=== PATIENT | male | born 1935 | race Caucasian/White ===

== ENCOUNTER 2017-05-30 19:54 | Inpatient (IN) | payer MEDICARE ==
[~2017-05-30 19:54] MED LIST: ISOVUE-370 76%-LOCM 1 ML ONE
[2017-05-30] MEDS ORDERED: Propofol 1,000 MG/100 ML VIAL IV ONE (20:08)
[2017-05-30 20:16] LABS: #Basophils 0.1 thou/uL (0.0-0.2); #Eosinphils 0.4 thou/uL (0.0-0.7); #Lymphocytes 5.4 thou/uL (1.20-3.40); #Monocytes 1.4 thou/uL (0.11-0.59); #Neutrophils 8.5 thou/uL (1.40-6.50); %Basophils 0.4 % (0.0-1.0); %Eosinophils 2.3 % (0.0-10.0); %Lymphocytes 34.2 % (21.0-51.0); %Neutrophils 54.1 % (42.0-75.0); Hemoglobin 15.9 g/dL (14.0-18.0); Mean Corpuscular HGB CONC 32.1 g/dL (32.0-36.0); Mean Corpuscular Hemoglobin 30.3 pg (27.0-31.0); Mean Corpuscular Volume 94.2 fl (80.0-94.0); Mean Platelet Volume 8.5 fL (7.4-10.4); Platelet Count 252 thou/uL (130-400); RBC Distribution Width 12.9 % (11.5-14.5); Red Blood Cell (RBC) Count 5.26 mill/uL (4.70-6.10); White Blood Cell (WBC) Count 15.6 thou/uL (4.8-10.8)
[2017-05-30 20:22] LABS: INR-International Normal Ratio 1.1; PTT 26.4 SEC (22.9-36.1); Prothrombin Time 14.4 SEC (12.0-14.7)
[2017-05-30 20:26] LABS: ALT (SGPT) 54 U/L (8-55); AST (SGOT) 66 U/L (5-34); Albumin 4.5 g/dL (3.4-4.8); Alkaline Phosphatase 414 U/L (40-150); Anion Gap 27 mmol/L (10-20); BUN (Urea Nitrogen) 13 mg/dL (8.4-25.7); Bilirubin, Total 0.6 mg/dL (0.2-1.2); CRP (Inflammatory) 0.92 mg/dL (= or < 0.5); Calc. Creatinine Clearance 0 mL/min (70-130); Calcium 9.9 mg/dL (7.8-10.44); Carbon Dioxide 14 mmol/L (23-31); Chloride 103 mmol/L (98-107); Estimated GFR-MDRD 51; Globulin 3.6 g/dL (2.4-3.5); Glucose 145 mg/dL (83-110); Potassium 4.8 mmol/L (3.5-5.1); Protein, Total 8.1 g/dL (5.8-8.1); Sodium 139 mmol/L (136-145)
[2017-05-30 20:30] LABS: pH, Arterial 7.31 (7.35-7.45)
[2017-05-30 20:31] LABS: CKMB 0.6 ng/mL (0-6.6); Troponin I Less than 0.010 ng/mL (< 0.028)
[2017-05-30 20:31] LABS: Actual Bicarbonate (HCO3a) 17.8 mEq/L (22-26); Base Excess (BEa) -7.6 mEq/L (0 (+/-) 2.5); CO2 Tension 36.4 mmHg (35.0-45.0); Hematocrit-ABG 47.9 % (42.0-52.0); Hemoglobin (Hb) 14.7 g/dL (14.0-18.0); O2 Tension (PaO2) 311.8 mmHg (80.0-100.0)
[2017-05-30 20:32] LABS: Analyzer IN Cardio ER; Calcium, Ionized 1.2 mmol/L (1.12-1.30); Puncture Site RRA
[2017-05-30] MEDS ORDERED: Fentanyl 100 MCG/2 ML VIAL ONE (20:35)
--- NOTE | 2017-05-30 20:50 | RAD ---
ONE VIEW CHEST 05/30/17 HISTORY: Fall. COMPARISON: 03/07/13. FINDINGS: Endotracheal tube at the level of the clavicle. Nasogastric tube extends beyond the diaphragm. The he art size is within normal limits. Pulmonary vessels are within normal limits. Reticulonodular opaciti es are present. No consolidation or mass. No pneumothorax or osseous abnormality. IMPRESSION: Nonspecific reticulonodular opacities which may be due to edema or infiltrate. POS: [facility]
--- NOTE | 2017-05-30 21:17 | CT ---
EXAM: NONCONTRAST HEAD CT 05/30/17 HISTORY: Ground level fall. Level I trauma. Slurred speech. COMPARISON: 08/03/10. TECHNIQUE: Noncontrast head CT is performed from skull base to skull vertex. FINDINGS: There is a left frontal scalp hematoma as well as left periorbital posttraumatic swelling. Left ocula r and right ocular lenses were appropriately located. Both globes are intact. Retrobulbar fat is pres erved. Symmetric attenuation of the optic nerves and ocular rectus muscles. Bilateral nasal bone frac tures are suspected. There is adequate aeration of the majority of the paranasal sinuses with the exc eption of the posterior left ethmoid air cells which are partially obscured. Calvarium is intact. There is a fracture involving the roof of the left orbit. There is hyperdensity in the left anterior cranial fossa likely representing predominantly subarachnoid blood. Small areas of cortical hemorrhag e cannot be entirely excluded. No additional areas of hemorrhage are appreciated. No evidence of hydr ocephalus. Cortical stacy-white matter differentiation is preserved. Note is made of a cavum septum pe llucidum and cavum vergae. IMPRESSION: Orbital roof fracture with intracranial hemorrhage in the left anterior cranial fossa predominantly s ubarachnoid in location. Small foci of cortical hemorrhage can not be excluded. Results of the study discussed with Dr. Snyder 05/30/17 at 9:02 p.m. Code CR POS: [facility]
[2017-05-30] MEDS ORDERED: niCARdipine 20MG In NaCl 20 MG/200 ML BAG ONE (21:44)
--- NOTE | 2017-05-30 21:53 | CT ---
CT CERVICAL SPINE WITHOUT CONTRAST 05/30/17 HISTORY: Level I trauma. Fall. COMPARISON: 08/03/10. TECHNIQUE: CT cervical spine is performed without contrast. Reformatted images are submitted for interpretation. FINDINGS: Soft tissue neck structures are unremarkable. Upper mediastinum is unremarkable. Chronic changes in t he visualized lung parenchyma. Central spinal canal and neural foramina are patent. Evaluation is campbell ited by technique. Degenerative change results in some stenosis of foramina and central spinal canal. Endotracheal and nasogastric tubes are identified. Lateral masses of C1 and C2 articulate appropriately. Appropriate articulation of facets. Odontoid pr ocess is intact. Straightening of the normal cervical lordosis is likely due to patient position, mus itzel spasm, or cervical collar. Cervical spine vertebral body height is maintained. No fracture. IMPRESSION: No fracture. The results of the study discussed with Dr. Snyder, 05/30/17 at 9:07 p.m. Code CR POS: [facility]
[2017-05-30] MEDS ORDERED: levETIRAcetam 500 MG/100 ML PREMIX BAG ONE (21:58)
[2017-05-30] MEDS ORDERED: Adacel (T-DAP) 0.5 ML VIAL ONE (21:58)
[2017-05-30] MEDS ORDERED: levETIRAcetam In NaCl (Iso-Os) 1,000 MG in Premix Bag 1 BAG IVPB SCH (22:15)
[2017-05-30 22:16] LABS: Lactic Acid 2.9 mmol/L (0.5-2.2)
--- NOTE | 2017-05-30 22:22 | CT ---
EXAM CHEST CT WITH CONTRAST ABDOMEN CT WITH CONTRAST PELVIS CT WITH CONTRAST LIMITED CT OF THORACIC AND LUMBAR SPINE 05/30/17 HISTORY: Level I trauma. Fall. COMPARISON: None. TECHNIQUE: Chest, abdomen and pelvis CT are performed with IV contrast. Coronal reformatted images are submitted for interpretation. Limited CT of the thoracic and lumbar spine with reformatted images. FINDINGS: CHEST CT: Note is made of endotracheal and nasogastric tubes. No mediastinal mass, lymphadenopathy, or hematoma. Heart size is within normal limits. No pericardial effusion. The thoracic and abdominal aorta has an overall normal caliber. No periaortic fat strandin g. Trachea and central bronchi are patent. Chronic changes in the lung apices and upper lobes are suspec josefina. There is consolidation in both lower lobes which may be due to atelectasis, pneumonia. The possi bility of aspiration cannot be excluded. There is no significant pleural fluid. No pneumothorax. ABDOMEN CT: Intra and extrahepatic portal vein is patent. Nonspecific periportal edema. Gallbladder is unremarkab le. There is appropriate enhancement of the solid organs. No evidence of solid organ injury. Atrophy of the pancreas is noted. Symmetric enhancement of the kidneys. Bilaterally, no obstructive uropathy. No mesenteric mass, lymphadenopathy, free air or free fluid. Limited evaluation of the alimentary can al due to the absence of oral contrast. No evidence of small bowel obstruction. Ileocecal junction is normal. Appendix is difficult to appreciate. Nevertheless, no inflammation of the cecal apex. No neda dence of colonic obstruction. Scattered fecal material in a nondistended, nondilated colon. There is diverticulosis, without evidence of diverticulitis. PELVIC CT: Urinary bladder is decompressed due to Leggett catheterization. Multiple surgical clips are noted in th e left and right hemipelvis. Bony pelvis and bony thorax are intact. No evidence of a bony thoracic or bony pelvic fracture. 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 There was mild bone demineralization. No acute fracture. IMPRESSION: No posttraumatic sequela in the chest, abdomen or pelvis. Results of the study discussed with Dr. Snyder, 05/30/17 at 9:13 p.m. Code CR POS: [facility]
[2017-05-30] MEDS ORDERED: Acetaminophen 325 MG TAB PO PRN (22:57)
[2017-05-30] MEDS ORDERED: Ondansetron HCl/PF 4 MG/2 ML Vial IVP PRN ×2 (22:57→23:23)
[2017-05-30] MEDS ORDERED: Ondansetron ODT 4 MG TAB SL PRN (22:57)
[2017-05-30] MEDS ORDERED: HumaLOG 300 UNITS/3 ML VIAL SC PRN (23:23)
[2017-05-30] MEDS ORDERED: Dextrose 5% in Water 1,000 ML IV PRN (23:23)
[2017-05-30] MEDS ORDERED: Ondansetron ODT 4 MG TAB PO PRN (23:23)
[2017-05-30] MEDS ORDERED: Promethazine HCl 25 MG/ML VIAL IM PRN (23:23)
[2017-05-30] MEDS ORDERED: Dextrose 50% Abboject 50 ML SYRINGE SLOW IVP PRN (23:23)
[2017-05-30] MEDS ORDERED: Sedation Protocol FS ONE ×2 (23:23)
[2017-05-30] MEDS ORDERED: Lorazepam 2 MG/ML VIAL SLOW IVP PRN (23:31)
[2017-05-30] MEDS ORDERED: Fentanyl CADD 250 ML IVPB SCH (23:31)
[2017-05-30] MEDS ORDERED: Morphine 2 MG/ML SYRINGE SLOW IVP PRN (23:31)
[2017-05-30] MEDS ORDERED: Fentanyl BOLUS 250 ML IVPB PRN (23:31)
[2017-05-30] MEDS ORDERED: DISCONTINUE PREVIOUS NARCOTIC PAIN MEDICATIONS AND BENZODIAZEPINES FS SCH (23:31)
[2017-05-30] MEDS: Sodium Chloride 0.9% 1,000 ML IV SCH (23:51)
[2017-05-30] MEDS: Propofol 1,000 MG/100 ML VIAL IV PRN (23:51)
[2017-05-31 00:13] LABS: Lactic Acid 1.9 mmol/L (0.5-2.2)
[2017-05-31] MEDS ORDERED: Succinylcholine Chloride 20 MG/ML 10 ml SYRINGE FS ONE (00:20)
[2017-05-31] MEDS: niCARdipine HCl 25 MG in Sodium Chloride 0.9% 250 ML 240 ML IVPB SCH ×2 (01:00→20:43)
--- NOTE | 2017-05-31 01:17 | CON ---
DATE OF CONSULTATION: 05/30/2017 ATTENDING PHYSICIAN: Dr. Parish Dangelo. HISTORY OF PRESENT ILLNESS: This is an 81-year-old male with a past medical history of dem entia on daily 325 mg aspirin, who presents to the ED per EMS for altered mental status which began a fter a fall. The reports at 1730 this evening, patient went to walk the dog. When he returned, she reported that he appeared to have fallen with an abrasion and contusion noted over the left eye. Around 7:00 p.m., she reports that the patient began having increased confusion when he tried to la dle soup into the dog's bowl. He then went to sit in his chair and she reports he began shaking all over for approximately 15 seconds before falling to the floor. She promptly called EMS who transferr ed him to [facility] for further management. On arrival, EMS and ED report that the patient's GCS of 6. He was not opening his eyes. No voice response, but would withdrawal the pain over all extre mities. He was intubated shortly after his arrival. CT head was done which was notable for a left s uperior orbital fracture with some subarachnoid hemorrhage posterior to this region in the anterior f rebel. I saw the patient in the emergency department, he was intubated and sedated with Diprivan. His pupil s were equal and reactive to light, he had a positive gag reflex, and corneal reflex. He is overbrea thing the ventilator. He does not withdraw for pain per me at this time, but exam is limited by charanjit tion. REVIEW OF SYSTEMS: Per HPI. PAST MEDICAL HISTORY: Dementia and incontinence. PAST SURGICAL HISTORY: Prostatectomy, tonsillectomy. FAMILY HISTORY: Noncontributory. SOCIAL HISTORY: He is , lives at home. He does not smoke, drink or use any drugs. ALLERGIES: He has no known drug allergies. PHYSICAL EXAMINATION: Limited by patient's current condition and sedation. His pupils are equal and reactive. He has a positive gag and a positive corneal reflex. He is overbreathing the vent. He i s noted to have ecchymosis and soft tissue swelling around the left periorbital region. ASSESSMENT AND PLAN: Fall, closed head trauma with left superior orbital fracture and subarachnoid h emorrhage in the left anterior fossa. Patient will be admitted to the ICU under the Trauma Service. We will monitor the patient closely with q.1 neuro checks. We will plan to stop aspirin and load th e patient with Keppra for seizure prophylaxis. The patient's blood pressure will be well controlled and he has been started on Cardene. We will plan to repeat his head CT in the morning for repeat baltazar luation of this injury. It is of note that his decreased level of consciousness does not appear to b e fully explained by his current CT. He may have sustained seizure or there may be a possible underl rema cerebrovascular accident. We will plan to get Neurology assistance for further evaluation of th e patient. Please reach out to Neurosurgery Service for additional questions or concerns.
--- NOTE | 2017-05-31 01:38 | HP ---
CHIEF COMPLAINT: Fall. HISTORY OF PRESENT ILLNESS: Mr. Carney is an 81-year-old man who has some mild dementia. He was walking his dog around 5:30 this evening and fell but got up on his own and came back home. His noticed that he had some bruising and swelling around his left eye and some scrapes on his knee, but he was acting and walking normally at that time. They sat down and were watching TV for a couple of hours and when she got up to make dinner, he got up as well. He was acting a little strangely and his speech was not clear. He went to sit at the dinner table and started having tremors in both his arms and legs and then fell off the chair. She called 911 and he was intubated shortly after his arrival in the emergency room. By the ER physician's report, he was completely unresponsive at the time of his admission and without localizing findings of posturing. PAST MEDICAL HISTORY: Mild dementia, prostate cancer, history of a pulmonary embolism many years ago but off blood thinners for the past 5 years or so. PAST SURGICAL HISTORY: Tonsillectomy and radical prostatectomy according to the family. According to old notes in the chart, he has also had an appendectomy and rotator cuff surgery. Chart review also reports a hernia repair of some type. ALLERGIES: No known drug allergies. OUTPATIENT MEDICATIONS: Aspirin 375 mg p.o. daily, donepezil 10 mg p.o. at bedtime, folate 1 mg p.o. daily, sertraline 300 mg p.o. daily. He was on quetiapine recently, but this was stopped since it was not helping him with his sleep. He has had several falls recently, all of which have been ground level and without serious injury. 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 His reports no recent health issues. He has been eating and drinking normally, has not had nausea or vomiting, has not been complaining of weakness or confusion. FAMILY HISTORY: Noncontributory. REVIEW OF SYSTEMS: Not obtainable, but again, the family does not report any recent issues. SOCIAL HISTORY: No history of tobacco, drug, or alcohol abuse. PHYSICAL EXAMINATION: VITAL SIGNS: On arrival were heart rate of 118, blood pressure of 216/123, 88% saturated with respirations of 24. He has remained hypertensive throughout his ER stay. Heart rate has come down somewhat to 100 and he is 96% saturated on the vent with an end-tidal CO2 of 33. GENERAL: Reveals an elderly gentleman who is not responsive to voice or painful stimuli. HEENT: His left eye is swollen shut, but both pupils are equal, round, and reactive to light. Both of his external auditory membranes are occluded by cerumen. He has swelling and bruising around his left eye. No mid face instability. No blood in the nose or mouth. NECK: Without surgical scars or bruits. No palpable lymphadenopathy or thyroid nodules. Trachea is midline. HEART: Regular in its rate and rhythm without murmurs, rubs, or gallops. LUNGS: Clear to auscultation. He does have a mild clicking in the rib cage to palpation in the right lower rib area but no subcu crepitus. ABDOMEN: Soft and nondistended with a healed lower abdominal incision. No palpable masses or hernias. No bruising or swelling. PELVIS: Stable. EXTREMITIES: Legs are equal length. There are some abrasions over the right knee and some older-looking scabbed scrapes on both shins. No deformities or abrasions of the upper extremities are noted. NEUROLOGIC: EMV is currently 3T. PSYCHIATRIC: Unable to evaluate. LABORATORY DATA: White count is mildly elevated at 15,000, hematocrit is 49, platelets 252. Coags are normal. ABG does show a base deficit of 7 but is otherwise unremarkable. Chemistry shows a mild elevation of the creatinine of 1.35, glucose of 145, and bicarbonate of 14, AST is 66 and alkaline phosphatase is 414, other LFTs are normal. His initial lactate was very elevated at 14, but this has been re-sent as it was felt that it could be spurious. His B- natriuretic peptide is normal at 52. CT images are reviewed and I agree with the written report. He has a small subarachnoid hemorrhage in the left anterior area, but no mass effect or shift. He does have a small associated fracture of the orbital roof. No cervical spine fractures are appreciated and no acute traumatic findings on the CT of the chest, abdomen, and pelvis. I do not see any evidence of rib fracture. ASSESSMENT: Rapid decline in mental status following a fall. He does have a small subarachnoid hemorrhage, but I do not see any obvious traumatic injuries that would cause such a rapid and dramatic decline in mental status. Neurosurgery has been consulted, but I am concerned that he may have had a stroke as well leading to his rapid decline. Unfortunately, we are somewhat limited in how we can treat this given his subarachnoid hemorrhage. If Neurosurgery feels that his neurologic findings can be explained by the subarachnoid hemorrhage, then we will ask them to manage this patient. Otherwise, I think we will likely need to get the Stroke team involved as well, although again, treatment options are quite limited. I felt that the elevated lactic acid is likely spurious and repeat lactate has since come back at 2.9. He has received some IV fluids and we will continue to monitor his intake and output carefully to make sure that his urine output is adequate. I have discussed all of the findings and the treatment plan with the patient's family and they are in agreement with the plan. He does not have an Advance directive or living will in place and is a full code at this time. They understand that his prognosis is very guarded. JOCELINE
[2017-05-31] MEDS: Propofol 1,000 MG/100 ML VIAL IV PRN (03:26)
[2017-05-31 03:54] LABS: #Basophils 0.1 thou/uL (0.0-0.2); #Eosinphils 0.1 thou/uL (0.0-0.7); #Lymphocytes 1.8 thou/uL (1.20-3.40); #Monocytes 1.4 thou/uL (0.11-0.59); #Neutrophils 10.7 thou/uL (1.40-6.50); %Basophils 0.4 % (0.0-1.0); %Eosinophils 0.5 % (0.0-10.0); %Lymphocytes 12.7 % (21.0-51.0); %Neutrophils 76.4 % (42.0-75.0); Hemoglobin 14.4 g/dL (14.0-18.0); Mean Corpuscular HGB CONC 33.2 g/dL (32.0-36.0); Mean Corpuscular Hemoglobin 30.6 pg (27.0-31.0); Mean Corpuscular Volume 92.1 fl (80.0-94.0); Mean Platelet Volume 8.3 fL (7.4-10.4); Platelet Count 185 thou/uL (130-400); RBC Distribution Width 12.9 % (11.5-14.5); Red Blood Cell (RBC) Count 4.71 mill/uL (4.70-6.10)
[2017-05-31 04:00] LABS: INR-International Normal Ratio 1.1; Prothrombin Time 14.2 SEC (12.0-14.7)
[2017-05-31] MEDS ORDERED: Midazolam HCl 2 mg/2 ml Vial SLOW IVP PRN (04:04)
[2017-05-31 04:11] LABS: Anion Gap 14 mmol/L (10-20); BUN (Urea Nitrogen) 12 mg/dL (8.4-25.7); Calc. Creatinine Clearance 80 mL/min (70-130); Calcium 8.4 mg/dL (7.8-10.44); Carbon Dioxide 20 mmol/L (23-31); Chloride 107 mmol/L (98-107); Estimated GFR-MDRD 84; Glucose 118 mg/dL (83-110); Potassium 3.9 mmol/L (3.5-5.1); Sodium 137 mmol/L (136-145)
--- NOTE | 2017-05-31 07:49 | RAD ---
PELVIS 1 VIEW: DATE: 05/31/17 HISTORY: Trauma. COMPARISON: None. FINDINGS: No acute fracture or malalignment. Multiple surgical clips of the pelvis. IMPRESSION: No acute fracture or malalignment. POS: [facility]
[2017-05-31 08:18] LABS: Actual Bicarbonate (HCO3a) 23.2 mEq/L (22-26); Base Excess (BEa) -1.7 mEq/L (0 (+/-) 2.5); CO2 Tension 39.9 mmHg (35.0-45.0); O2 Tension (PaO2) 98.2 mmHg (80.0-100.0); pH, Arterial 7.38 (7.35-7.45)
[2017-05-31 08:19] LABS: ALV-art Gradient 279.725 (0-20); Calcium, Ionized 1.1 mmol/L (1.12-1.30); Hemoglobin (Hb) 13.7 g/dL (14.0-18.0); Puncture Site RRA
[2017-05-31] MEDS: Famotidine/PF 20 mg/2ml Vial SLOW IVP SCH ×2 (08:40→20:23)
[2017-05-31] MEDS: Sodium Chloride 0.9% 1,000 ML IV SCH ×3 (08:40→18:44)
--- NOTE | 2017-05-31 08:45 | CT ---
PRELIMINARY REPORT/[facility]/EMERGENCY AFTER HOURS PROCEDURE: EXAM: CT Head Without Intravenous Contrast CLINICAL HISTORY: 81 years old, male; Condition or disease; Other: Ich; Patient HX: F/u ich TECHNIQUE: Axial computed tomography images of the head/brain without intravenous contrast. COMPARISON: CT Brain WO Con 2017-05-30 20:50 FINDINGS: Prior exam showed fracture of the left orbital roof, with predominantly subarachnoid blood in the inf erior left frontal region. The presumed subarachnoid blood is still present, probably not significantly changed in the short int erval. No mass effect or midline shift. No definite new hemorrhage in the interval. Ventricle size is normal for age. There is mild, relatively symmetrical decreased attenuation in the periventricular white matter, like ly from microvascular disease. No definite acute infarct by CT. IMPRESSION: Essentially stable subarachnoid blood in the inferior left frontal region. No definite new hemorrhage in the interval. No mass effect or midline shift. Other findings discussed above. Thank you for allowing us to participate in the care of your patient. Dictated and Authenticated by: Tor Champion MD 05/31/2017 4:30 AM Central Time ([place] & [place]) FINAL REPORT CT BRAIN WITHOUT CONTRAST: Date: 05/31/17 HISTORY: Evaluate intracerebral hemorrhage. COMPARISON: CT brain from prior day. FINDINGS/IMPRESSION: Findings and impression are concordant with the preliminary report by [facility]. In addition, there are fa int increased soft tissue markings in the left retroorbital intraconal soft tissues. This may reflect small volume hemorrhage. POS: [facility]
[2017-05-31] MEDS ORDERED: FLU VACC TS2017-18 (>65YR) 0.5 ML SYRINGE IM ONE (09:00)
--- NOTE | 2017-05-31 09:18 | CON ---
DATE OF CONSULTATION: 05/31/2017 REASON FOR CONSULTATION: Possible left orbital fracture. HISTORY OF PRESENT ILLNESS: This is an 81-year-old male status post fall with a rapid decline in men wil status. He was found to have a small amount of subarachnoid hemorrhage on CT scan. Of note, he was also noted to have a swollen left periorbital area, for this I was consulted. MEDICAL HISTORY/SURGICAL HISTORY/ALLERGIES: Reviewed from Dr. Smyth's history and physical. OUTPATIENT MEDICATIONS: Reviewed as well. FAMILY HISTORY: Reviewed. REVIEW OF SYSTEMS: Not obtainable. The patient is intubated, only responds to rough tactile stimula tion. PHYSICAL EXAMINATION: VITAL SIGNS: Patient's heart rate is 110, blood pressure 150/90. He is satting 92%. HEENT: He has a large amount of left periorbital edema and swelling. He does have some chemosis. I can pry the left eye open. Both pupils are equal, round and reactive to light and accommodation. E xtraocular movements cannot be assessed. The remainder of the exam is unremarkable. CT scan of the head and CT scan and neck were obtained. There is no CT scan of the face where I can appreciably identify all the facial bones. There appears to be no facial fractures visible on the CT scan. He has old right maxillary hardware from previous injury. ASSESSMENT: An 81-year-old status post fall with decline in mental status and subarachnoid hemorrhag e and left facial contusion. PLAN: I feel no treatment is needed for the left facial injury at this time. We will reassess once the patient's mental status improves.
--- NOTE | 2017-05-31 12:37 | PRG ---
DATE OF SERVICE: 05/31/2017 SUBJECTIVE: Mr. Carney is an 81-year-old man who fell down from a ground level position sustaining a cute intracranial hemorrhage. The patient was intubated for airway control and due to patient's dimi nished mental status. Overnight, he has done well. When sedation was light, patient opens eyes to v oice, moves all extremities and follows commands. He tolerated ventilatory wean this morning. OBJECTIVE: CURRENT VITAL SIGNS: Includes blood pressure 145/60, pulse is 88, respiratory rate is 18, maximum te mperature since admission is 98.6 degrees Fahrenheit, oxygen saturation is 96% on FiO2 of 30%. HEENT: Examination reveals left orbital ecchymosis. No significant facial swelling present. Pupils are equal, round, and reactive to light and accommodation. HEART: Reveals regular rate and rhythm, no murmurs or gallops auscultated. LUNGS: Clear to auscultation bilaterally. Breathing is regular and unlabored. ABDOMEN: Soft, nontender, and nondistended. EXTREMITIES: Reveals 2+ radial and pedal pulses bilaterally. No ankle edema is present. NEUROLOGIC: Examination reveals no focal deficits present. IMAGING DATA: I have reviewed the followup brain CT scan which reveals stable intracranial hemorrhag e. LABORATORY DATA: Pertinent laboratory findings include CBC with 14,000 white blood cells, hemoglobin is 14.4, hematocrit is 43.4, and platelet count is 185,000. Metabolic profile: Sodium 137, potassi um is 3.9, chloride is 107, bicarbonate is 20, BUN is 12, creatinine 0.87, glucose is 118. IMPRESSION: 1. Postoperative admission day #1 status post ground level fall. 2. Stable acute intracranial hemorrhage. 3. The patient is neurologically stable. 4. Acute posttraumatic respiratory failure, improved. PLAN: 1. The patient was weaned and successfully extubated. 2. We will initiate physical and occupational therapy. We will also ask speech and language patholo gist to evaluate the patient for cognition, speech and swallow. 3. We will use nicardipine by continuous infusion to maintain systolic blood pressure less than 150 until the patient is tolerating oral intake and we will then convert to oral antihypertensives. 4. We will ask PMNR to evaluate the patient for possible inpatient rehabilitation. Above findings a nd plan discussed with the patient's family at bedside. Total critical care time is 35 minutes.
[2017-05-31] MEDS: Acetaminophen 500 MG TAB PO SCH ×4 (14:13→23:48)
--- NOTE | 2017-05-31 14:35 | CON ---
DATE OF CONSULTATION: 05/31/2017 IMPRESSION: 1. Traumatic subarachnoid hemorrhage. 2. Secondary seizures. 3. Dementia. PLAN: 1. Continue Keppra 500 mg twice a day. 2. Office followup. HISTORY OF PRESENT ILLNESS: Mr. Carney is an 81-year-old gentleman who lives at home with his . He was out walking the dog and apparently fell and struck his face. He was able to get himself up a nd walked home independently. His cleaned him up and they were sitting in the den watching tele vision. He got up to get something to eat and spilled soup on the stovetop. She helped him back to the couch and sitting down. He then went into a generalized tonic clonic seizure. He was brought in to the emergency room for evaluation and subsequently intubated. He is now extubated. There is no p ast history of seizure activity. She reports his dementia is fairly advanced, although he still is a ble to bathe and dress independently. He has to be reminded to do things. He does not carry on conv ersations very well. He has a bit of an obsessive compulsive pattern of activities around the house by her report. PAST MEDICAL HISTORY: Otherwise, unremarkable. ALLERGIES: None. SOCIAL HISTORY: No tobacco or alcohol use. FAMILY HISTORY: Noncontributory. REVIEW OF SYSTEMS: Limited to the patient's ability to communicate. PHYSICAL EXAMINATION: GENERAL: He is a well-nourished elderly man lying in bed, a bit restless. VITAL SIGNS: Blood pressure 167/73, pulse 90, respirations 19, saturations 94%. HEENT: Traumatic damage to the left side of the face with some ecchymosis. NECK: Supple. EXTREMITIES: No cyanosis. NEUROLOGIC: He was awake and answers questions, although it is quite difficult to understand due to the breathing of his voice. Cranial nerve exam showed a bit of facial asymmetry from the swelling, b ut otherwise appeared to be neurologically intact. He is moving all 4 extremities equally well. Gai t was not tested. DIAGNOSTIC DATA: CT scan of the brain shows some facial bone fractures as well as a small subarachno id hemorrhage in the left frontal region. Repeat CT showed that this was stable and has not expanded . He has been started on Keppra. SUMMARY: I agree with current management. We will be happy to follow up with him as an outpatient a nd with the hope would discontinue anticonvulsants in a few months.
[2017-05-31] MEDS ORDERED: Amlodipine 10 MG TAB PO SCH (15:45)
[2017-05-31] MEDS: Amlodipine 10 MG TAB PO SCH (16:25)
[2017-05-31] MEDS: Donepezil HCl 10 MG TAB PO SCH (20:24)
[2017-05-31] MEDS ORDERED: diphenhydrAMINE 50 MG/ML VIAL IVP PRN (20:26)
--- NOTE | 2017-05-31 20:57 | PRG ---
DATE OF SERVICE: 05/31/2017 SUBJECTIVE: An 81-year-old male status post fall with atraumatic subarachnoid and post trauma seizur e. The patient was extubated this morning, otherwise back to baseline. OBJECTIVE: VITAL SIGNS: Stable and had been reviewed. Physical examination is unremarkable. ASSESSMENT AND PLAN: An 81-year-old male status post fall. Continue care plan as stated in the cresencio y progress note. Continue to monitor. Continue care plan as noted. Discharge plan is pending.
[2017-06-01] MEDS: Sodium Chloride 0.9% 1,000 ML IV SCH ×2 (04:36→13:56)
[2017-06-01] MEDS: niCARdipine HCl 25 MG in Sodium Chloride 0.9% 250 ML 240 ML IVPB SCH ×2 (04:45→08:31)
[2017-06-01] MEDS: Acetaminophen 500 MG TAB PO SCH ×3 (06:30→17:21)
[2017-06-01] MEDS: Famotidine/PF 20 mg/2ml Vial SLOW IVP SCH ×2 (08:27→21:05)
[2017-06-01] MEDS: Amlodipine 10 MG TAB PO SCH (08:28)
--- NOTE | 2017-06-01 17:31 | PRG ---
DATE OF SERVICE: 06/01/2017 ATTENDING PHYSICIAN: Dr. Hank Null. SUBJECTIVE: Mr. Carney is an 81-year-old man status post ground level fall sustaining an acute intracranial hemorrhage. He was extubated yesterday and has remained hemodynamically stable with no respiratory difficulty overnight and today. Nursing staff and family reports patient had increased restlessness last night. Family reports patient is normally unable to sleep until fringe knotter hours, however restlessness is not his normal state. Otherwise, he has done well. He is getting up to the chair. He is interactive with his family, but still confused at times. Cardene was started yesterday for hypertensive episodes. OBJECTIVE: GENERAL: Elderly male lying in bed in no acute distress. CURRENT VITAL SIGNS: Blood pressure 143/60, heart rate 75, O2 sat 98%, respirations 22. HEENT: Left periorbital ecchymosis. CARDIOVASCULAR: Regular rate and rhythm. PULMONARY: Bilateral breath sounds clear. RESPIRATORY: Even unlabored. ABDOMEN: Soft, nontender, nondistended. EXTREMITIES: Neurovascularly intact. 2+ peripheral pulses. NEUROLOGIC: GCS 14. Oriented to name and place. ASSESSMENT: 1. Status post ground level fall. 2. Stable acute intracranial hemorrhage. Discussed with Neurosurgery PA this morning. 3. Orbital roof fracture, left. PLAN: 1. Wean Cardene to off. Restart patient's home blood pressure medicine. Add hydralazine p.r.n. 2. Discussed with Neurosurgery PA this morning. Neurosurgery followup in 4 weeks. 3. Continue PT, OT, speech therapy. 4. When Cardene drip is weaned and patient is transitioned to oral medications , patient may be transferred up to the surgical floor. 5. Case management consult for discharge planning. Anticipate patient will need inpatient rehabilitation or senior care facility. 6. Discussed at length with family. Family in agreement with plan. 7. Start Seroquel low dose tonight. The patient was reviewed with Dr. Null, attending trauma surgeon, who agrees with the assessment and plan of care. [facility]
[2017-06-01] MEDS ORDERED: hydrALAZINE 20 MG/ML VIAL SLOW IVP PRN (17:34)
[2017-06-01] MEDS: Donepezil HCl 10 MG TAB PO SCH (21:05)
--- NOTE | 2017-06-01 22:37 | PRG ---
DATE OF SERVICE: 06/01/2017 SUBJECTIVE: 81-year-old male status post fall, traumatic subarachnoid, and posttraumatic seizure. T he patient has been extubated for 24 hours. He does remain agitated. He does remain in the unit at this time due to blood pressure control. OBJECTIVE: VITAL SIGNS: Have been stable at this time. Physical exam was unremarkable. ASSESSMENT AND PLAN: Continue care plan as stated in daily progress note. Continue to monitor. Dis charge plan is pending.
[2017-06-02] MEDS: Acetaminophen 500 MG TAB PO SCH ×4 (00:30→18:34)
[2017-06-02] MEDS: Famotidine/PF 20 mg/2ml Vial SLOW IVP SCH (08:22)
[2017-06-02] MEDS: Amlodipine 10 MG TAB PO SCH (08:22)
--- NOTE | 2017-06-02 10:37 | PRG ---
DATE OF SERVICE: 06/02/2017 SUBJECTIVE: Mr. Carney is confused at baseline, but less impulsive today. He moves all extremities and follows commands. Cyndy coma scale therefore is E4, V4, M6. He tolerated his diet and is havi ng normal bowel and urinary function. He has had no seizure activity over the last 48 hours. PHYSICAL EXAMINATION: VITAL SIGNS: Currently includes blood pressure 160/72, pulse is 85, respiratory rate is 21, temperat ure is 98.2 degrees Fahrenheit, oxygen saturation is 98% on room air. HEENT: Reveals pupils equal, round, reactive to light and accommodation. NECK: No jugular venous distention noted. CARDIOVASCULAR: Heart reveals regular rate and rhythm, no murmurs or gallops auscultated. LUNGS: Clear to auscultation bilaterally. Breathing is regular and unlabored. ABDOMEN: Soft, nontender and nondistended. Bowel sounds in all four quadrants appear normoactive. NEUROLOGIC: Reveals no focal deficits present. LABORATORY DATA: Today was not obtained. Blood glucose has remained stable this morning at 95. IMPRESSION: Status post acute intracranial hemorrhage, neurologically and hemodynamically stable. PLAN: 1. Continue with physical and occupational therapy. 2. Convert all medications including the anti-seizure medications to p.o. intake. 3. Patient will be transferred to the general surgical floor where we will continue with physical an d occupational therapy.
[2017-06-02] MEDS: Donepezil HCl 10 MG TAB PO SCH (21:36)
[2017-06-02] MEDS: levETIRAcetam 500 MG TAB PO SCH (21:36)
[2017-06-02] MEDS: Famotidine 20 MG TAB PO SCH (21:37)
--- NOTE | 2017-06-02 21:40 | PRG ---
DATE OF SERVICE: 06/02/2017 SUBJECTIVE: No acute events. The patient has been transferred from the ICU to the floor. He is sta tus post fall from standing. OBJECTIVE: VITAL SIGNS: Vital signs has been reviewed, otherwise stable. Physical exam is unremarkable from daily progress note. ASSESSMENT AND PLAN: The patient to continue plan as stated in daily progress note. Continue to mon itor. Discharge planning is pending.
[2017-06-03] MEDS: Acetaminophen 500 MG TAB PO SCH ×3 (01:28→11:20)
[2017-06-03 06:12] VITALS: BMI 26.7
[2017-06-03] MEDS: Amlodipine 10 MG TAB PO SCH (09:20)
[2017-06-03] MEDS: levETIRAcetam 500 MG TAB PO SCH (09:20)
[2017-06-03] MEDS: Famotidine 20 MG TAB PO SCH ×2 (09:21→09:25)
[2017-06-03] MEDS ORDERED: traMADol HCl 50 MG TAB PO SCH (10:15)
[2017-06-03 13:29] VITALS: BP 165/71; TEMP 97.9
--- NOTE | 2017-06-03 14:23 | DIS ---
DATE OF ADMISSION: 05/30/2017 DATE OF DISCHARGE: 06/03/2017 ADMISSION DIAGNOSES: 1. Status post ground level fall. 2. Subarachnoid hemorrhage. 3. History of dementia. 4. Facial contusions. CONSULTATIONS: Oral Maxillofacial Surgery, Dr. Larry; Neurosurgery, Dr. Dangelo; Neurology, Dr. Hermilo penaloza PROCEDURES: None. SUMMARY: The patient is an 81-year-old man who was reportedly walking his dog when he fell, striking his head. The patient had an unknown loss of consciousness, but there was seizure activity reported . The patient was brought to the Emergency Department, evaluated, examined and noted to have the abo ve injuries. He was admitted initially to the Critical Care Unit for close neurological observation. The following day, the patient would be moved to the surgical floor and his anti-seizure medicines will be converted to p.o. The patient remained seizure free once his Keppra was started and remained seizure free at time of discharge. At the time of discharge, the patient was tolerating a diet, his pain was controlled and he was ambulatory with minimal assistance. The patient was discharged home and will follow up with Neurosurgery and Neurology per their instructions. He may return to the [facility] as needed. The patient was discharged home with Keppra and given strict return precautions .
[2017-06-03] MEDS ORDERED: traMADol HCl 50 MG TAB PO PRN (19:15)
--- NOTE | 2017-06-07 13:44 | EKG ---
Test Reason : Blood Pressure : / mmHG Vent. Rate : 100 BPM Atrial Rate : 100 BPM P-R Int : 162 ms QRS Dur : 102 ms QT Int : 356 ms P-R-T Axes : 030 020 044 degrees QTc Int : 459 ms Normal sinus rhythm Cannot rule out Inferior infarct , age undetermined Abnormal ECG Confirmed by PASHA WARD ([id number]), brands editor BLADIMIR DYER ([id number]) on 06/07/2017 1:44:06 PM Referred By: Confirmed By:PASHA WARD
== END 2017-06-03 16:19 | disposition home or self-care (01) | DRG 82 ==
LOC: ERS 19:54 → CCU 22:47 → SURG A 06-02 15:17
PROVIDERS: ADMIT Surgery; ATTEND Surgery
PROC: 5A1935Z Respiratory Ventilation, Less than 24 Consecutive Hours (ICD-10-PCS; principal; 2017-05-30)
PROC: 0BH17EZ Insertion of Endotracheal Airway into Trachea, Via Natural or Artificial Opening (ICD-10-PCS; 2017-05-30)
PROC: 0BP1XDZ Removal of Intraluminal Device from Trachea, External Approach (ICD-10-PCS; 2017-05-31)
DX: S06.6X9A Traumatic subarachnoid hemorrhage with loss of consciousness of unspecified duration, initial encounter (principal); J96.00 Acute respiratory failure, unspecified whether with hypoxia or hypercapnia; R56.1 Post traumatic seizures; F03.90 Unspecified dementia, unspecified severity, without behavioral disturbance, psychotic disturbance, mood disturbance, and anxiety; S02.19XA Other fracture of base of skull, initial encounter for closed fracture; Z85.46 Personal history of malignant neoplasm of prostate; Z86.711 Personal history of pulmonary embolism; W18.30XA Fall on same level, unspecified, initial encounter; Y93.K1 Activity, walking an animal
CPT/HCPCS: 31500; 36415; 36416; 51703; 70450; 71045; 71260; 72125; 72170; 74177; 80048; 80053; 82553; 82805; 83605; 83880; 84146; 84484; 85025; 85610; 85730; 86140; 86850; 86900; 86901; 90471; 90715; 93005; 94002; 94003; 94640; 96361; 96365; 96366; 96375; A4216; G0390; G8978-GP-CK; G8979-GP-CI; G8987-GO-CJ; G8988-GO-CH; G8996-GN-CJ; G8997-GN-CJ; J1200; J1953; J2060; J2270; J2704; J3010; J7050; J7620; S0028

== ENCOUNTER 2017-07-03 08:43 | Outpatient (CLI) | payer MEDICARE ==
--- NOTE | 2017-07-03 10:52 | CT ---
CT OF HEAD NONCONTRAST: Indication: Post-traumatic intracranial hemorrhage. Follow up. History of subdural hemorrhage. FINDINGS: There is no evidence of intracranial hemorrhage, mass effect, or midline shift or ventriculomegaly. T here is cavum septum pellucidum. Calvarial structures are intact. Partially imaged post-operative paula nges at the anterior right maxillary sinus. Mild parenchymal volume loss is seen. There is minimal ch ronic microvascular ischemic disease. IMPRESSION: No intracranial hemorrhage or mass effect. POS: ADELITA
== END 2017-07-03 08:44 | disposition home or self-care (01) ==
LOC: TBSIIMAG 08:43
PROVIDERS: ATTEND Neurological Surgery
DX: S06.6X0A Traumatic subarachnoid hemorrhage without loss of consciousness, initial encounter (principal); Z79.899 Other long term (current) drug therapy
CPT/HCPCS: 70450

== ENCOUNTER 2017-11-18 23:45 | Inpatient (IN) | payer MEDICARE ==
[2017-11-19] MEDS ORDERED: levETIRAcetam In NaCl (Iso-Os) 1,000 MG in Premix Bag 1 BAG IVPB SCH (00:15)
[2017-11-19 00:44] LABS: #Eosinphils 0.2 thou/uL (0.0-0.7); #Monocytes 0.7 thou/uL (0.11-0.59); #Neutrophils 7.1 thou/uL (1.40-6.50); %Basophils 0.1 % (0.0-1.0); %Eosinophils 1.9 % (0.0-10.0); %Lymphocytes 10.8 % (21.0-51.0); %Neutrophils 79.1 % (42.0-75.0); Hemoglobin 14.8 g/dL (14.0-18.0); Mean Corpuscular HGB CONC 34.5 g/dL (32.0-36.0); Mean Corpuscular Hemoglobin 30.5 pg (27.0-31.0); Mean Corpuscular Volume 88.3 fL (78.0-98.0); Mean Platelet Volume 7.8 fL (7.4-10.4); Platelet Count 162 thou/uL (130-400); RBC Distribution Width 13.6 % (11.5-14.5); Red Blood Cell (RBC) Count 4.84 mill/uL (4.70-6.10)
[2017-11-19 01:06] LABS: ALT (SGPT) 142 U/L (8-55); AST (SGOT) 155 U/L (5-34); Albumin 3.8 g/dL (3.4-4.8); Alkaline Phosphatase 444 U/L (40-150); Anion Gap 18 mmol/L (10-20); BUN (Urea Nitrogen) 11 mg/dL (8.4-25.7); Bilirubin, Total 3.2 mg/dL (0.2-1.2); Calc. Creatinine Clearance 0 mL/min (70-130); Calcium 8.7 mg/dL (7.8-10.44); Carbon Dioxide 16 mmol/L (23-31); Chloride 102 mmol/L (98-107); Estimated GFR-MDRD 46; Globulin 3.3 g/dL (2.4-3.5); Glucose 157 mg/dL (83-110); Potassium 4.1 mmol/L (3.5-5.1); Protein, Total 7.1 g/dL (5.8-8.1); Sodium 132 mmol/L (136-145)
[2017-11-19 01:09] LABS: CKMB 0.8 ng/mL (0-6.6); Troponin I 0.082 ng/mL (< 0.028)
--- NOTE | 2017-11-19 01:49 | PDOC.FPRHP ---
- History of Present Illness Chief Complaint: Seizure History of Present Illness: This is an 82 yo male with a PMH of seizures, subarachnoid hemorrhage, Alzheimer who presents to the ED with a cc of witnessed seizure. Pt. is poor historian, is primary historian and medical decision maker. states that she called to him around 2300 tonight and he didnt respond. She went to check on him and he had a seizure with upper and lower limb involvement as well as facial involvment. His states that it lasted approximately 2-3 minutes during which he had decreased level of consciousness. His also states that he is normally incontinent. states that he is currently at his baseline mentation. Pt. is independent for basic ADL but has poor senior care memory that has gradually been worsening - Allergies/Adverse Reactions Allergies Allergy/AdvReac Type Severity Reaction Status Date / Time No Known Drug Allergies Allergy Verified 03/07/13 16:18 - Home Medications Medication Instructions Recorded Confirmed Type Donepezil HCl 10 mg PO HS 03/07/13 05/31/17 History Sertraline HCl 150 mg PO DAILY 03/07/13 05/31/17 History Docusate [Colace] 100 mg PO BID PRN 03/15/13 05/31/17 History Folic Acid 1 mg PO DAILY 05/31/17 05/31/17 History Acetaminophen [Tylenol Extra 1,000 mg PO Q6H tab 06/03/17 Rx Strength] Amlodipine [Norvasc] 10 mg PO DAILY 06/03/17 06/03/17 History levETIRAcetam [Keppra] 500 mg PO BID tab 06/03/17 Rx traMADol HCl [Ultram] 50 mg PO Q8H PRN #20 tab 06/03/17 Rx - History PMHx: subarachnoid hemorrhage this past June after ground level fall, Alzheimer, incontinence PSHx: Prostatectomy, tonsillectomy FHx:noncontributory Social: negative for alcohol, tobacco, drugs - Review of Systems General: denies: fever/chills, weight/appetite/sleep changes Eyes: denies: eye pain, vision changes Respiratory: denies: cough, shortness of breath, exercise intolerance Cardiovascular: denies: chest pain, palpitation, edema Gastrointestinal: denies: nausea, vomiting Genitourinary: reports: incontinence Skin: denies: rashes, lesions Musculoskeletal: denies: pain, tenderness Psychological: denies: anxiety, depression - Vital signs BP: [154/76] HR: [81] RR: [20] Tmax: [98.5] Pox: [92]% on [2L] Wt: [87.18 kg] - Physical Exam Constitutional: NAD, awake, alert and oriented, well developed HEENT: normocephalic and atraumatic, PERRLA, EOMI, conjunctiva clear, MMM Neck: supple, FROM Chest: no-tender to palpation, no lesions Heart: RRR, normal S1/S2, no murmurs/rubs/gallops, pulses present Lungs: CTAB, no respiratory distress, good air movement Abdomen: soft, bowel sounds present -Abdomen: LLQ tender to palpation Musculoskeletal: normal structure, normal tone Neurological: no focal deficit, CN II-XII intact Skin: no rash/lesions, good turgor Heme/Lymphatic: no unusual bruising or bleeding, no purpura Psychiatric: normal mood and affect -Psychiatric: pt. has dementia, FMR H&P: Results - Labs Result Diagrams: 11/19/17 00:30 11/19/17 00:30 Lab results: WBC 9.0 thou/uL (4.8-10.8) 11/19/17 00:30 Hgb 14.8 g/dL (14.0-18.0) 11/19/17 00:30 Hct 42.7 % (42.0-52.0) 11/19/17 00:30 MCV 88.3 fL (78.0-98.0) 11/19/17 00:30 Plt Count 162 thou/uL (130-400) 11/19/17 00:30 Neutrophils % 79.1 % (42.0-75.0) H 11/19/17 00:30 Sodium 132 mmol/L (136-145) L 11/19/17 00:30 Potassium 4.1 mmol/L (3.5-5.1) 11/19/17 00:30 Chloride 102 mmol/L (98-107) 11/19/17 00:30 Carbon Dioxide 16 mmol/L (23-31) L 11/19/17 00:30 BUN 11 mg/dL (8.4-25.7) 11/19/17 00:30 Creatinine 1.46 mg/dL (0.6-1.3) H 11/19/17 00:30 Glucose 157 mg/dL (83-110) H 11/19/17 00:30 Calcium 8.7 mg/dL (7.8-10.44) 11/19/17 00:30 Total Bilirubin 3.2 mg/dL (0.2-1.2) H 11/19/17 00:30 AST 155 U/L (5-34) H 11/19/17 00:30 ALT 142 U/L (8-55) H 11/19/17 00:30 Alkaline Phosphatase 444 U/L (40-150) H 11/19/17 00:30 CK-MB (CK-2) 0.8 ng/mL (0-6.6) 11/19/17 00:30 Serum Total Protein 7.1 g/dL (5.8-8.1) 11/19/17 00:30 Albumin 3.8 g/dL (3.4-4.8) 11/19/17 00:30 FMR H&P: A/P - Problem List (1) Seizure Current Visit: No Status: Acute Code(s): R56.9 - UNSPECIFIED CONVULSIONS (2) Subarachnoid hemorrhage Current Visit: No Status: Resolved Code(s): I60.9 - NONTRAUMATIC SUBARACHNOID HEMORRHAGE, UNSPECIFIED (3) Alzheimer's dementia Current Visit: No Status: Chronic Code(s): G30.9 - ALZHEIMER'S DISEASE, UNSPECIFIED; F02.80 - DEMENTIA IN OTH DISEASES CLASSD ELSWHR W/O BEHAVRL DISTURB (4) Incontinence of urine Current Visit: No Status: Chronic Code(s): R32 - UNSPECIFIED URINARY INCONTINENCE - Plan Seizure -Admit to medicine for observation -Fall risk -Continue home medications -IM ativan PRN seizure -Seizure precautions Subarachnoid hemorrhage -occurred in June, not expecting any changes or issues but bear in mind Alzheimer -Continue home medications -open blinds if available for patient orientation Urinary incontinence -Depends adult diapers Code: Full Family: in room, plan discussed with her Prophylaxis: SCDs FMR H&P: Upper Level - Pertinent history 82 yo WM PMH recent SAH with subsequent seizures. Presents following seizure that lasted 2-3 minutes at approximately 2300 on 11/18/17. states patient required 20 min to return to baseline. Had returned to baseline at time of arrival to the ER. States he missed his PM keppra dose. No seizures since initial event. Otherwise compliant with medication regimen. ER: Keppra. - Pertinent findings Vitals: BP 150s/70s, otherwise WNL GEN: NAD, A&O to person, time, and place Eyes: PERRL, EOMI ENT: MMM CV: RRR, no murmur Lung: CTA-B normal effort Neuro: no gross focal deficits, follows commands, moves all extremities. - Plan Date/Time: 11/19/17 0147 I, Valerio Zapata MD, have evaluated this patient and agree with findings/plan as outlined by internal medicine specialist resident. Pertinent changes/additions are listed here. 1. Post SAH seizure 2/2 medication non-compliance: Given dose of IV keppra in ER. Will continue home dose in hospital. Monitor on tele overnight. seizure precautions taken. Consider neurology consultation inpatient vs close follow up outpatient. 2. Hx DVT and PE: Given recent SAH, will ppx with SCDs. 3. Alzheimer's: Needs discussion of advanced directives as family unsure of senior care goals of care. currently Full code 4. PPx: SCD, Fall, seizure 5. CODE: FULL Dispo: Obs, Tele, <2 midnights.
[2017-11-19] MEDS ORDERED: traMADol HCl 50 MG TAB PO PRN (03:05)
[2017-11-19] MEDS ORDERED: Acetaminophen 325 MG TAB PO PRN (03:05)
[2017-11-19] MEDS ORDERED: Docusate 100 MG CAP PO PRN (03:05)
[2017-11-19] MEDS ORDERED: Lorazepam 2 MG/ML VIAL SLOW IVP PRN (03:05)
[2017-11-19 03:50] VITALS: BMI 28.6
[2017-11-19 04:24] LABS: #Eosinphils 0.1 thou/uL (0.0-0.7); #Monocytes 0.9 thou/uL (0.11-0.59); #Neutrophils 7.1 thou/uL (1.40-6.50); %Basophils 0.5 % (0.0-1.0); %Eosinophils 0.7 % (0.0-10.0); %Lymphocytes 11.2 % (21.0-51.0); %Monocytes 10.2 % (0.0-10.0); %Neutrophils 77.4 % (42.0-75.0); Hemoglobin 14.2 g/dL (14.0-18.0); Mean Corpuscular HGB CONC 34.8 g/dL (32.0-36.0); Mean Corpuscular Hemoglobin 30.6 pg (27.0-31.0); Mean Platelet Volume 7.4 fL (7.4-10.4); Platelet Count 160 thou/uL (130-400); RBC Distribution Width 13.5 % (11.5-14.5); Red Blood Cell (RBC) Count 4.65 mill/uL (4.70-6.10); White Blood Cell (WBC) Count 9.2 thou/uL (4.8-10.8)
[2017-11-19 04:39] LABS: ALT (SGPT) 133 U/L (8-55); AST (SGOT) 137 U/L (5-34); Albumin 3.6 g/dL (3.4-4.8); Alkaline Phosphatase 418 U/L (40-150); Anion Gap 12 mmol/L (10-20); BUN (Urea Nitrogen) 10 mg/dL (8.4-25.7); Bilirubin, Total 2.6 mg/dL (0.2-1.2); Calc. Creatinine Clearance 48 mL/min (70-130); Calcium 8.9 mg/dL (7.8-10.44); Carbon Dioxide 22 mmol/L (23-31); Chloride 104 mmol/L (98-107); Estimated GFR-MDRD 48; Globulin 3.3 g/dL (2.4-3.5); Glucose 143 mg/dL (83-110); Potassium 3.8 mmol/L (3.5-5.1); Protein, Total 6.9 g/dL (5.8-8.1); Sodium 134 mmol/L (136-145)
--- NOTE | 2017-11-19 05:25 | PDOC.EVN ---
Event Note - Event Note Event Note: Pt. had a jump in troponin from .082 to 1.22. Pt. was reevaluated and continues to deny chest pain. An EKG was ordered at this time. Plan was discussed with . Cardiology was consulted Discussed case with Dr. Monson
[2017-11-19 06:19] LABS: CKMB 3.6 ng/mL (0-6.6)
[2017-11-19] MEDS: Acetaminophen 500 MG TAB PO SCH ×3 (07:15→18:41)
[2017-11-19 07:35] LABS: Troponin I 1.675 ng/mL (< 0.028)
[2017-11-19 08:16] LABS: CKMB 5.3 ng/mL (0-6.6)
[2017-11-19 08:23] LABS: Troponin I 1.683 ng/mL (< 0.028)
[2017-11-19 08:29] LABS: Syphilis Antibody Nonreactive (Nonreactive); Syphilis Antibody Index 0.06 S/CO (<1.00 Non-Reactive)
[2017-11-19 08:47] LABS: HBCM Index 0.06 S/CO (0-0.79); HBSAg Index 0.17 S/CO (0-0.99); HIV (1/2) Antibody/Antigen Non-Reactive (NonReactive); Hep B Surf AB Non-Reactive (NonReactive); Hep B Surf Ag Non-Reactive S/CO (NonReactive); Hep C IgG Ab Non-Reactive (NonReactive); Hep C Index 0.08 S/CO (0-0.79); Hepatitis B Core IGM Abs Non-Reactive (NonReactive)
[2017-11-19] MEDS ORDERED: Amlodipine 10 MG TAB PO SCH (09:00)
[2017-11-19] MEDS: levETIRAcetam 500 MG TAB PO SCH ×2 (09:20→20:12)
[2017-11-19] MEDS: Folic Acid 1 MG TAB PO SCH (09:21)
--- NOTE | 2017-11-19 10:14 | ULT ---
RIGHT UPPER QUADRANT ULTRASOUND: Date: 11/19/17 CLINICAL HISTORY: Hyperbilirubinemia. Elevation of liver function enzymes. FINDINGS: No acute gallbladder pathology. There is incomplete visualization of the hepatic parenchyma due to pe rsistent bowel content, which does preclude its assessment. There is a negative Arizmendi's sign reporte d by information technology consultant. The common duct measures 5.0 mm, within normal limits for patient's age. No ascites . IMPRESSION: 1. No acute process identified within the right upper quadrant. 2. Limited visualization of the liver. POS: ADELITA
--- NOTE | 2017-11-19 12:12 | CON ---
DATE OF CONSULTATION: 11/19/2017 REASON FOR CONSULTATION: Non-STEMI. HISTORY OF PRESENT ILLNESS: Mr. Carney is a pleasant 82-year-old white gentleman who comes to the [facility] for a seizure. He had a traumatic subarachnoid hemorrhage back in June of this year and d eveloped seizures from it. He eventually was placed on Keppra and had not had a seizure until last n ight when he missed a dose of Keppra and found him unresponsive having a seizure. He was postic wil for about 20-30 minutes after the episode. By the time he was brought into the hospital, he was already back to normal. He has underlying Alzheimer dementia, very pleasantly demented. During his admission, troponins were drawn and they went to the positive range, so Cardiology is being consulted for this. Mr. Carney denies any chest pain, tightness, pressure, no shortness of breath. Family te lls me that since last night they have been asking him about chest pain and he refused this throughou t. He has never complained about chest pain in the past either. PAST MEDICAL HISTORY: 1. Traumatic subarachnoid hemorrhage. 2. Seizure disorder post-subarachnoid hemorrhage. 3. Alzheimer's. 4. Incontinence. PAST SURGICAL HISTORY: 1. Prostatectomy. 2. Tonsillectomy. FAMILY HISTORY: Noncontributory. SOCIAL HISTORY: No alcohol, tobacco or drugs. REVIEW OF SYSTEMS: A 12-point review of systems was done and is all negative unless stated in the hi story of present illness. OUTPATIENT MEDICATIONS: Include: 1. Folic acid 1 mg daily. 2. Sertraline 150 mg. 3. Donepezil 10 mg at bedtime. 4. Amlodipine 10 mg a day. 5. Keppra 500 mg b.i.d. ALLERGIES: No known drug allergies. PHYSICAL EXAMINATION: VITAL SIGNS: Temperature 98.8, pulse 71, respiration rate 18, satting 92% on room air, blood pressur e 150/74. GENERAL: Awake, alert, oriented to person only, in no distress. HEENT: Normocephalic, atraumatic. NECK: Supple. LUNGS: Clear to auscultation. CARDIOVASCULAR: S1, S2, no S3, S4, no murmurs. ABDOMEN: Soft, positive bowel sounds. EXTREMITIES: No edema. SKIN: Warm and dry. LABORATORY WORK: Reviewed. Sodium 134, potassium 3.8. LFTs were abnormal with a total bilirubin of 2.6, AST and ALT in 130s. Alkaline phosphatase of 418. Troponin was 0.08, 1.2, 1.6, 1.6 with dee dee l CK-MBs. Albumin was 3.6. Keppra level was 8.3 earlier this morning. Hepatitis B serologies and s yphilis antibodies are all nonreactive as well as HIV. CBC was unremarkable as well. Abdominal ultrasound was reviewed. CT of the brain done in 07/03/2017 shows no intracranial hemorrhage or mass effect. ASSESSMENT AND PLAN: [id number] elevation myocardial infarction: Most likely demand ischemia fr om his episode of seizure. We will get an echocardiogram to make sure that his left ventricular func tion is normal. No plans of doing a left heart catheter. I spoke with family at length about this p ossibly being related to coronary artery disease; however, the possible outcomes of a catheterization would be nothing if there is no significant disease in which case, nothing would change as of now. The other two possibilities are needing a stent or needing bypass surgery. Stent would not be great idea on him with a history of subarachnoid hemorrhage and falls and bypass surgery would not be advis able in somebody with dementia at this point, so really the best route at this point is conservative therapy. We will get an echocardiogram depending on LV function. We will decide on medications to b e discharged. Thank you for letting us participate in the care of your patient. We will follow.
[2017-11-19 13:11] LABS: CKMB 4.7 ng/mL (0-6.6)
[2017-11-19 13:15] LABS: Critical Call Chem Troponin I RESULT DECREASING; Troponin I 1.002 ng/mL (< 0.028)
[2017-11-19] MEDS ORDERED: Donepezil HCl 10 MG TAB PO SCH (21:00)
[2017-11-20] MEDS: Acetaminophen 500 MG TAB PO SCH ×3 (01:09→11:56)
--- NOTE | 2017-11-20 08:23 | PDOC.FM ---
- Subjective Subjective: Patient is doing well. He had no acute events overnight. Family at bedside expresses he is at his baseline and continues to deny CP or abdominal pain of any sort. He is eating, drinking, voiding, and stooling normally. - Objective MAR Reviewed: Yes Vital Signs & Weight: Vital Signs (12 hours) Temp Pulse Resp BP Pulse Ox 11/20/17 08:00 99.1 F 60 16 119/57 L 93 L 11/20/17 04:50 97.5 F L 62 16 128/66 93 L 11/20/17 00:28 97.5 F L 67 18 118/53 L 95 Result Diagrams: 11/19/17 04:15 11/19/17 04:15 <Sosa Solares - Last Filed: 11/20/17 11:55> - Objective Vital Signs & Weight: Vital Signs (12 hours) Temp Pulse Resp BP Pulse Ox 11/20/17 12:00 97.8 F 61 20 139/65 92 L 11/20/17 08:40 99.1 F 60 16 93 L 11/20/17 08:00 99.1 F 60 16 119/57 L 93 L 11/20/17 04:50 97.5 F L 62 16 128/66 93 L Result Diagrams: 11/19/17 04:15 11/19/17 04:15 <Tor Chiang - Last Filed: 11/20/17 15:36> Phys Exam - Physical Examination Constitutional: NAD HEENT: moist MMs Respiratory: no wheezing, no rales Cardiovascular: RRR, no significant murmur Gastrointestinal: soft, non-tender Musculoskeletal: no edema Deviation from normal: AOx1 <Sosa Solares - Last Filed: 11/20/17 11:55> Dx/Plan (1) NSTEMI (non-ST elevated myocardial infarction) Code(s): I21.4 - NON-ST ELEVATION (NSTEMI) MYOCARDIAL INFARCTION Status: Acute (2) Seizure Code(s): R56.9 - UNSPECIFIED CONVULSIONS Status: Acute (3) Alzheimer's dementia Code(s): G30.9 - ALZHEIMER'S DISEASE, UNSPECIFIED; F02.80 - DEMENTIA IN OTH DISEASES CLASSD ELSWHR W/O BEHAVRL DISTURB Status: Chronic (4) History of fall Code(s): Z91.81 - HISTORY OF FALLING Status: Acute (5) History of subarachnoid hemorrhage Code(s): Z86.79 - PERSONAL HISTORY OF OTHER DISEASES OF THE CIRCULATORY SYSTEM Status: Acute - Plan Plan: Acute Seizure with Hx of Seizure DO - suffered fall about 6 months ago where he sustained subarachnoid hemmorhage, since then has had seizures - came in due to seizure after missing nighttime dose of Keppra, originally thought this could be the reason for his seizure but after further questioning, states they were only late on his nighttime dose by 1hr. Therefore will increase Keppra to 750 BID and f/u with Dr. Iraheta in 2 weeks. - Keppra level- low therapeutic - being monitored on tele, no tele events NSTEMI - patient asymptomatic - trops elevated to 1.6 but downtrended yesterday to 1.0 - Cardiology consulted, patient not candidate for cath or CABG, will medically manage - echo with EF 40-45% and grade 1/3 diastolic dysfunction as well as evidence of old infarct with anteroseptal and inferoseptal hypokinesia - awaiting cards recs on any new medications to be added. Elevated Liver Enzymes and Hyperbilirubinemia - Hepatitis panel negative - RUQ u/s without gallbladder pathology, limited evaluation of liver - direct bili 1.1 - patient without sx, will f/u outpatient Mixed HFpEF and HFrEF - echo results as above. - will need BB and YAN-I, awaiting cards recs Alzheimers - continue home Donepezil, Sertraline, and Seroquel Dispo: d/c home today, pending cards recs. <Sosa Solares - Last Filed: 11/20/17 11:55> Attending Addendum - Attending Addendum Date/Time: 11/20/17 5269 I personally evaluated the patient and discussed the management with Dr. Solares. I agree with the History, Examination, Assessment and Plan documented above with any addition or exceptions noted below. Lungs: CTA. Cor: RRR. Abd: soft non-tender no masses. He feels well and ready to go home. Per cardiology he may be discharged on medical management. Since we learned he really did not miss a dose of Keppra but only had a one hour delay in taking one dose and level was very low in therapeutic range I agree with Dr. Solares we will increase dose from 500 bid to 750mg bid and have him F/U with Dr. Iraheta. Discharge home. MD Becka <Tor Chiang - Last Filed: 11/20/17 15:36>
[2017-11-20] MEDS: Folic Acid 1 MG TAB PO SCH (08:40)
[2017-11-20] MEDS: levETIRAcetam 500 MG TAB PO SCH (08:40)
[2017-11-20] MEDS ORDERED: Polyethylene Glycol 3350 17 GM Packet PO SCH (09:00)
--- NOTE | 2017-11-20 11:48 | PDOC.CTH ---
Cardiology Progress Note - Subjective He is doing well. no moire seizures. Denies any chest pain, tightness, pressure , SOB. - Objective Vital Signs Temp Pulse Resp BP Pulse Ox 11/20/17 08:40 99.1 F 60 16 93 L 11/20/17 08:00 99.1 F 60 16 119/57 L 93 L 11/20/17 04:50 97.5 F L 62 16 128/66 93 L 11/20/17 00:28 97.5 F L 67 18 118/53 L 95 - Physical Examination General/Neuro: alert & oriented x3, NAD Neck: no JVD present Lungs: CTA, unlabored respirations Heart: RRR Abdomen: NT/ND Extremities: other: (no edema.) - Telemetry Telemetry Rhythm: NSR - Labs Result Diagrams: 11/19/17 04:15 11/19/17 04:15 Troponin/CKMB CK-MB (CK-2) 4.7 ng/mL (0-6.6) 11/19/17 12:33 Troponin I 1.002 ng/mL (< 0.028) H* 11/19/17 12:33 - Assessment/Plan 1. Seizure disorder. 2. NSTEMI 3. Ischemic CM most likely. EF at 40-45% 4. Moderate AI 5. Septal wall is severely hypokinetic. PLAN: - Most likely his LV findings are chronic. My suspicion is severe LAD disease versus multivessel disease. - After a long conversation with both daughter and they opt to do conservative therapy for now. - They may change their minds in the future but not at this time as his quality of life is just fine and they don't wish to risk him getting any worse. They are aware that he may develop worsening heart failure if revascularization is needed and not performed but they want to see how his heart fares with medical therapy. - HR too low at baseline for a BB. Will start very low dose ACEI. - May discharge home any time from cardiac perspective. - Follow up with me in 1 month.
[2017-11-20 12:20] VITALS: BP 139/65; TEMP 97.8
[2017-11-20] MEDS ORDERED: levETIRAcetam 500 MG TAB PO SCH (21:00)
--- NOTE | 2017-11-21 01:02 | DIS-2 ---
DATE OF ADMISSION: 11/19/2017 DATE OF DISCHARGE: 11/20/2017 RESIDENT: Sosa Solares D.O. ADMITTING ATTENDING: Dr. Bib Monson. DISCHARGE ATTENDING: Dr. Tor Chiang. CONSULTATIONS: Cardiology, Dr. Miguel A Whitmore. PROCEDURES: 1. Abdominal ultrasound shows no gallbladder pathology, but unable to visualize liver due to technic ally difficult scan. 2. Echocardiogram, which shows EF 40%-45%, grade 1-3 diastolic dysfunction, and anteroseptal and inf eroseptal hypokinesis as well as concentric left ventricular hypertrophy, mild mitral regurgitation, aortic valve sclerosis, moderate aortic regurgitation, mild tricuspid and pulmonic regurgitation. PRIMARY DIAGNOSES: 1. Seizure disorder, secondary to subarachnoid hemorrhage, status post fall. 2. Ips-TM-kbgcdaqin myocardial infarction. 3. Elevated liver enzymes. 4. Hyperbilirubinemia. 5. Alzheimer's dementia. 6. 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 DISCHARGE MEDICATIONS: 1. Folic acid 1 mg p.o. daily. 2. Sertraline 150 mg p.o. daily. 3. Donepezil 10 mg p.o. at bedtime. 4. Keppra 750 mg p.o. b.i.d. 5. Seroquel 50 mg p.o. at bedtime. 6. Lisinopril 1.25 mg p.o. daily. 7. Colace 100 mg p.o. b.i.d. p.r.n. 8. Atorvastatin 40 mg p.o. daily. 9. Aspirin 81 mg p.o. daily. DISCONTINUED MEDICATIONS: 1. Keppra 500 mg p.o. b.i.d. 2. Amlodipine 10 mg daily. HISTORY OF PRESENT ILLNESS AND HOSPITAL COURSE: The patient is an 82-year-old male with a 6-month hi story of fall, suffering a subarachnoid hemorrhage, and since then has had seizure disorder. Had bee n been placed on Keppra 500 b.i.d. On the night of admission, he was late by one hour on his Keppra and developed some diaphoresis and then seizure that lasted a couple minutes with about a 20-minute p ostictal period. Keppra level was obtained and found to be 8, which is low normal. Due to this, pat ient was increased to Keppra 750 b.i.d. During his hospital stay, troponin level was checked and fou nd to be normal, but trended upwards to a positive level at its highest being 1.6, and then down-tren ding to 1.0. Patient was asymptomatic at that time. EKGs showed evidence of possible inferior and a nterior lateral ischemia, but no overt signs of acute ischemia at this time. Cardiology was consulte d. Due to his recent fall, he is not a candidate for anticoagulation. He also was not a candidate f or catheterization or CABG, so family and Cardiology decided on medical management. Echo was perform ed, which showed an EF of 40%-45% giving him a diagnosis of heart failure with reduced ejection fract ion and a grade 1/3 diastolic dysfunction giving him a diagnosis of heart failure with preserved ejec tion fraction and evidence of old infarct corresponding to the EKG findings. Cardiology recommended YAN use, but recommended against beta debbie use due to his heart rate. Last heart rate documented is 61. YAN is at a very low dose, because his blood pressures are normal to low normal. Patient was also started on atorvastatin and daily aspirin. Additionally, lab results showed elevated liver enzymes and bilirubin. AST of 137, ALT 133. Alkalin e phosphatase of 418 with a total bilirubin of 2.6 and a direct bilirubin of 1.1. Hepatitis panel wa s drawn, which was negative. Right upper quadrant ultrasound was done, which showed normal gallbladd er pathology, but was unable to evaluate liver pathology. The patient is asymptomatic. Abdominal ex am is benign. We will discharge home and allow the patient to follow up with PCP, Dr. Melgar. DISPOSITION: Stable. DISCHARGE INSTRUCTIONS: 1. Location: Home. 2. Diet: Heart healthy. 3. Activity: As tolerated. Patient will be referred to cardiac rehabilitation, although I am not s ure how he will do with his underlying dementia. 4. Follow up with Dr. Melgar in 1 week for reevaluation of abnormal labs and Dr. Whitmore in 1 month.
[2017-11-21] MEDS ORDERED: Lisinopril 2.5 MG TAB PO SCH (09:00)
== END 2017-11-20 15:20 | disposition home or self-care (01) | DRG 100 ==
LOC: ERS 23:45 → 2SE 11-19 02:43 → OBSVTOIN 11-19 05:20
PROVIDERS: ADMIT Family Medicine; ATTEND Family Medicine
DX: G40.909 Epilepsy, unspecified, not intractable, without status epilepticus (principal); I21.A1 Myocardial infarction type 2; I50.30 Unspecified diastolic (congestive) heart failure; W01.0XXA Fall on same level from slipping, tripping and stumbling without subsequent striking against object, initial encounter; Y93.9 Activity, unspecified; Y92.9 Unspecified place or not applicable; Y99.9 Unspecified external cause status; G30.9 Alzheimer's disease, unspecified; F02.80 Dementia in other diseases classified elsewhere, unspecified severity, without behavioral disturbance, psychotic disturbance, mood disturbance, and anxiety; I25.5 Ischemic cardiomyopathy; I25.10 Atherosclerotic heart disease of native coronary artery without angina pectoris; Z90.79 Acquired absence of other genital organ(s); R32 Unspecified urinary incontinence; I08.3 Combined rheumatic disorders of mitral, aortic and tricuspid valves
CPT/HCPCS: 36415; 76705; 80053; 80177; 82248; 82553; 84484; 85025; 86705; 86706; 86780; 86803; 87340; 87389; 93005; 93010; 93306; 96365; J1953

== ENCOUNTER 2017-12-25 10:31 | Outpatient (CLI) | payer MEDICARE | END 2017-12-25 10:32 | disposition home or self-care (01) | LOC: BICCT 10:31 | PROVIDERS: ATTEND Family Medicine | DX: R74.8 Abnormal levels of other serum enzymes (principal) | CPT/HCPCS: 74160; 82565 ==

== ENCOUNTER 2018-09-17 07:00 | Outpatient (CLI) | payer MEDICARE ==
--- NOTE | 2018-09-17 07:43 | ULT ---
Abdominal ultrasound complete: HISTORY: Abdominal pain Mildly coarse liver echogenicity which is borderline enlarged at 18.7 cm in length. Evidence for sple nomegaly measuring 14 cm. The gallbladder demonstrates mobile echogenic but nonshadowing nodular debris evidence for nodular sludge versus nonshadowing stones. No gallbladder wall thickening or jeff cholecystic fluid. Common bile duct 0.6 cm. Visualized pancreas, IVC, aorta are unremarkable. No renal hydronephrosis. No abnormal fluid collection. IMPRESSION: Evidence for hepatosplenomegaly. Mobile echogenic nodular debris within the gallbladder without defin itive shadowing, nodular sludge versus nonshadowing stones. Common bile duct 0.6 cm. Other findings as above.
== END 2018-09-17 07:01 | disposition home or self-care (01) ==
LOC: BICULT 07:00
PROVIDERS: ATTEND Family Medicine
DX: R10.9 Unspecified abdominal pain (principal); R16.2 Hepatomegaly with splenomegaly, not elsewhere classified; K82.8 Other specified diseases of gallbladder
CPT/HCPCS: 76700

== ENCOUNTER 2018-10-14 14:10 | Outpatient (CLI) | payer MEDICARE ==
--- NOTE | 2018-10-14 14:34 | RAD ---
2 VIEWS CHEST: HISTORY: Abnormal breathing sounds. PA and lateral views of the chest obtained. FINDINGS: Ectasia of the aorta seen. The lungs are well aerated. No evidence of active intrathoracic disease se en. Bilateral shoulder rotator cuff repair screws seen. IMPRESSION: Unremarkable 2 views chest. Transcribed Date/Time: 10/14/2018 2:44 PM
== END 2018-10-14 14:11 | disposition home or self-care (01) ==
LOC: BICRAD 14:10
PROVIDERS: ATTEND Physician Assistant Medical
DX: R16.2 Hepatomegaly with splenomegaly, not elsewhere classified (principal); R94.5 Abnormal results of liver function studies; R93.3 Abnormal findings on diagnostic imaging of other parts of digestive tract; R09.89 Other specified symptoms and signs involving the circulatory and respiratory systems
CPT/HCPCS: 71046

== ENCOUNTER 2018-10-20 10:31 | Outpatient (CLI) | payer MEDICARE ==
--- NOTE | 2018-10-20 12:45 | CT ---
Pre and postcontrast enhanced images abdomen pelvis. History: Abnormal liver enzymes. Pre and postcontrast enhanced images of the abdomen pelvis demonstrate areas of lung parenchymal scar ring in both lung bases worse on the right than on the left. The liver is unremarkable. Some moderate intrahepatic biliary dilatation is seen. The common bile duct is moderately dilated april suring up to 11 mm. There is some area of soft tissue density in the distal common bile duct. This may represent the distal common bile duct mass. Correlate with ERCP. There are areas of hyperdensity seen in the gallbladder neck compatible with possible numerous small gallstones. The spleen is moderately enlarged measuring approximately 6.9 x 12.6 x 15.9 cm. No definite evidence of periaortic lymphadenopathy seen. The small bowel is unremarkable. No definite evidence of colonic obstruction seen. Pelvic numerous surgical clips seen. Multilevel lumbar degenerative changes and vacuum disc changes seen. IMPRESSION: 1.: Common bile duct dilatation with possible distal common bile duct mass. 2: Intrahepatic mildly enlarged bile ducts with definite abnormally enlarged common bile duct. 3. Cholelithiasis. Transcribed Date/Time: 10/20/2018 2:22 PM
== END 2018-10-20 10:32 | disposition home or self-care (01) ==
LOC: CT 10:31
PROVIDERS: ATTEND Internal Medicine Gastroenterology
DX: R94.5 Abnormal results of liver function studies (principal); R16.2 Hepatomegaly with splenomegaly, not elsewhere classified; K80.20 Calculus of gallbladder without cholecystitis without obstruction
CPT/HCPCS: 74178; 82565

== ENCOUNTER 2019-03-05 11:06 | Inpatient (IN) | payer MEDICARE ==
[2019-03-05 11:28] LABS: #Lymphocytes 1.2 thou/uL (1.20-3.40); #Monocytes 1.3 thou/uL (0.11-0.59); #Neutrophils 9.9 thou/uL (1.40-6.50); %Eosinophils 0.3 % (0.0-10.0); %Lymphocytes 9.7 % (21.0-51.0); %Monocytes 10.7 % (0.0-10.0); %Neutrophils 79.3 % (42.0-75.0); Hemoglobin 11.7 g/dL (14.0-18.0); Mean Corpuscular HGB CONC 32.5 g/dL (32.0-36.0); Mean Corpuscular Volume 86.3 fL (78.0-98.0); Mean Platelet Volume 7.3 fL (7.4-10.4); Platelet Count 197 thou/uL (130-400); RBC Distribution Width 14.4 % (11.5-14.5); Red Blood Cell (RBC) Count 4.17 mill/uL (4.70-6.10); White Blood Cell (WBC) Count 12.5 thou/uL (4.8-10.8)
[2019-03-05 11:53] LABS: ALT (SGPT) 30 U/L (8-55); AST (SGOT) 38 U/L (5-34); Albumin 3.5 g/dL (3.4-4.8); Alkaline Phosphatase 250 U/L (40-110); Anion Gap 15 mmol/L (10-20); BUN (Urea Nitrogen) 25 mg/dL (8.4-25.7); Calc. Creatinine Clearance 0 mL/min (70-130); Carbon Dioxide 22 mmol/L (23-31); Chloride 102 mmol/L (98-107); Estimated GFR-MDRD 63; Globulin 4.5 g/dL (2.4-3.5); Glucose 108 mg/dL (83-110); Lipase 24 U/L (8-78); Potassium 3.6 mmol/L (3.5-5.1); Sodium 135 mmol/L (136-145)
--- NOTE | 2019-03-05 12:14 | ULT ---
Sonogram right upper quadrant HISTORY: Right upper quadrant pain. FINDINGS: Gallbladder is dilated up to 9.6 cm. Stones are apparent within the dependent portion and a t the gallbladder neck. Wall is lobular with a heterogeneous echotexture and thickened up to 1.4 cm. No pericholecystic fluid. Patient was reportedly not tender over the gallbladder fossa at the sotero e the exam. Liver is very heterogeneous with a nodular contour. No focal mass. Common duct is 0.4 cm. No free fluid. Thinning of the cortex of the right kidney is evident. IMPRESSION: Cholelithiasis. Gallbladder distention worrisome for gallbladder outlet obstruction. Nega tive sonographic Arizmendi sign. Clinical correlation regarding other signs and symptoms of acute cholecystitis is required. Radionucleotide hepatobiliary scan could be used to evaluate for biliary p atency if needed. Marked gallbladder wall thickening can be seen in the setting of acute cholecystitis, but is also non specific and can be seen with liver disease. Cirrhotic appearance of the liver.
--- NOTE | 2019-03-05 15:48 | PDOC.FPRHP ---
- History of Present Illness Chief Complaint: Abdominal pain History of Present Illness: 83yo CM with h/o dementia and hypothyroidism who presents with sxs of abdominal pain, decreased PO intake. History obtained from as pt is A/O x1 at baseline and has basline confusion. states that pt began to complain of mild abd pain started Friday, was seen by [facility] GI. Was given return precautions. Pt remained stable, however awoke this morning with more intensive abdomial pain, last PO intake noon yesterday. states pain appears to be more in the RUQ. They called GI this morning and were told to come into ED for further eval. currently states he has not had any n/v. Subjective fever/ chills today. states he appears slightly more confused from baseline, but no big changes. Pt states he has mild abdominal pain, those asymptomatic, denying any SOB, fever/chill, n/v, CP. states that approximately 1 month ago in [place], pt had similar sxs however also associated n/v. Had ERCP done and stone removal. states sxs had resolved until earlier this week. ED Course: Elevated TB and AP. Dr. Braswell with GI called. Plan for ERCP with possible surgical intervention. - Allergies/Adverse Reactions Allergies Allergy/AdvReac Type Severity Reaction Status Date / Time No Known Drug Allergies Allergy Verified 11/19/17 04:55 - Home Medications Medication Instructions Recorded Confirmed Type Aspirin [Ecotrin] 81 mg PO HS 03/05/19 03/05/19 History Docusate [Colace] 100 mg PO DAILY 03/05/19 03/05/19 History Donepezil HCl [Aricept] 5 mg PO HS 03/05/19 03/05/19 History Folic Acid 1 mg PO DAILY 03/05/19 03/05/19 History Levothyroxine Sodium 50 mcg PO DAILY 03/05/19 03/05/19 History QUEtiapine Fumarate [SEROquel] 200 mg PO HS 03/05/19 03/05/19 History QUEtiapine Fumarate [Seroquel] 50 mg PO HS 03/05/19 03/05/19 History Sertraline HCl 150 mg PO HS 03/05/19 03/05/19 History Sertraline HCl [Zoloft] 75 mg PO DAILY 03/05/19 03/05/19 History levETIRAcetam [Keppra] 375 mg PO HS 03/05/19 03/05/19 History levETIRAcetam [Keppra] 750 mg PO DAILY 03/05/19 03/05/19 History - History PMHx: Moderate to severe dementia, hypothyroidism, chronic urinary incontinence , prostate cancer with radical prostectomy in 1991 PSHx: Tonsillectomy, Radical prostectomy in 1991 FHx: Non-contributory Social: Lives at home with . No Drugs, EtOH, Tob. Able to perform ADLS but not AIDLS at home. A/O x 1 at baseline. - Review of Systems ROS unobtainable: other (from and patient) General: reports: fever/chills, weight/appetite/sleep changes (decreased appetite), fatigue. denies: night sweats Eyes: denies: vision changes ENT: denies: nasal congestion, rhinorrhea Respiratory: denies: cough, congestion, shortness of breath Cardiovascular: denies: chest pain, palpitation, edema Gastrointestinal: reports: abdominal pain. denies: nausea, vomiting, diarrhea, constipation Genitourinary: reports: incontinence (chronic) Skin: denies: rashes, jaundice - Vital signs BP: 145/70 HR: 73 RR: 22 Tmax: 98.3 Pox: 95% on RA Wt: 80kg - Physical Exam Constitutional: NAD (resting comfortably, A/O x1 at baseline to person only, unaware of his medical condition), well developed HEENT: EOMI, conjunctiva clear, no scleral icterus, grossly normal vision, grossly normal hearing, other (dry mucous membranes) Neck: supple, trachea midline Heart: RRR, normal S1/S2, no murmurs/rubs/gallops, pulses present, no edema Lungs: CTAB, no respiratory distress, good air movement, no rales/rhonchi, no wheezing Abdomen: soft, bowel sounds present, other (midly TTP over RUQ) Musculoskeletal: normal structure, normal tone Neurological: no focal deficit Skin: no rash/lesions Heme/Lymphatic: no unusual bruising or bleeding Psychiatric: other (A/O x1 at baseline per . Not acutely aggitated or confused. Unaware of situation. Oriented to person only.) FMR H&P: Results - Labs Result Diagrams: 03/07/19 14:14 03/07/19 05:44 Lab results: WBC 12.5 thou/uL (4.8-10.8) H 03/05/19 11:18 Hgb 11.7 g/dL (14.0-18.0) L 03/05/19 11:18 Hct 36.0 % (42.0-52.0) L 03/05/19 11:18 MCV 86.3 fL (78.0-98.0) 03/05/19 11:18 Plt Count 197 thou/uL (130-400) 03/05/19 11:18 Neutrophils % 79.3 % (42.0-75.0) H 03/05/19 11:18 Sodium 135 mmol/L (136-145) L 03/05/19 11:18 Potassium 3.6 mmol/L (3.5-5.1) 03/05/19 11:18 Chloride 102 mmol/L (98-107) 03/05/19 11:18 Carbon Dioxide 22 mmol/L (23-31) L 03/05/19 11:18 BUN 25 mg/dL (8.4-25.7) 03/05/19 11:18 Creatinine 1.12 mg/dL (0.7-1.3) 03/05/19 11:18 Glucose 108 mg/dL (83-110) 03/05/19 11:18 Calcium 9.0 mg/dL (7.8-10.44) 03/05/19 11:18 Total Bilirubin 2.0 mg/dL (0.2-1.2) H 03/05/19 11:18 AST 38 U/L (5-34) H 03/05/19 11:18 ALT 30 U/L (8-55) 03/05/19 11:18 Alkaline Phosphatase 250 U/L (40-110) H 03/05/19 11:18 Serum Total Protein 8.0 g/dL (5.8-8.1) 03/05/19 11:18 Albumin 3.5 g/dL (3.4-4.8) 03/05/19 11:18 Lipase 24 U/L (8-78) 03/05/19 11:18 - Radiology Interpretation US - abdomen Status: report reviewed by me (CBD 0.4cm. Dilated gallbladder 9.6cm. Stones. 1.4cm thickened wall. Negative murphys. Cirrhotic liver.) FMR H&P: A/P - Problem List (1) Choledocholithiasis Current Visit: No Status: Acute Code(s): K80.50 - CALCULUS OF BILE DUCT W/O CHOLANGITIS OR CHOLECYST W/O OBST (2) Hypothyroidism Current Visit: No Status: Chronic Code(s): E03.9 - HYPOTHYROIDISM, UNSPECIFIED (3) Seizure Current Visit: No Status: Chronic Code(s): R56.9 - UNSPECIFIED CONVULSIONS (4) Alzheimer's dementia Current Visit: No Status: Chronic Code(s): G30.9 - ALZHEIMER'S DISEASE, UNSPECIFIED; F02.80 - DEMENTIA IN OTH DISEASES CLASSD ELSWHR W/O BEHAVRL DISTURB - Plan 83yo CM with h/o moderate to severe dementia who presents with choledocholithiasis. #Choledocholithiasis - WBC 12.5. Tbili 2.0. AP 250. - RUQ US positive for choledocholithiasis - Dr. Braswell, GI, consulted from ED, plan for ERCP. May need surgical intervention. Apprec recs and assistance. #Dementia - Baseline A/O x1 per , oriented to person only, no acute agitation or confusion - Cont home Zoloft, Aricept, and Seroquel - Encourage for family to be present to re-orient patient, maintain normal daily routine, awake during day and asleep at night to try to prevent acute delirium while in the hospital #Seizure disorder - last seizure >1year ago per family report - cont keppra #Hypothyroidism - cont home levothyroxine Code: DNR - Mr. Carney is unable to understand his medical situation and is A/O x 1 at baseline 2/2 dementia. at beside. Discussed Code status at length. Proceeding with DNR status. Diet: NPO for ERCP IVF: 1L bolus, then 120cc/hr LR SCD: Lovenox PCP: Talia Disposition/LOS: Admit to Medical for choledocholithiasis. GI consulted, awaiting recs. Plan for ERCP. Anticipate hospitalization >48hours. FMR H&P: Upper Level - Pertinent history 83 yo M here with complaint of abdominal pain since Friday. He has a hx of cholelithiasis and has had stones removed from his GB in the past. He is an established pt of Dr Braswell who sent him to the ER today due to his pain. Associated symptoms include subjective fever and diarrhea since Friday. In the ER US is c/w choledocholithiasis. GI was consulted who plans to perform an ERCP. PMHx Cholelithiasis Dementia Seizure do Hypothyroid Surgical Hx Gall stone removal Social Hx Denies smoking, etoh, and marijuana - Pertinent findings See international tax manager note for full ROS, PE, vitals, and labs ROS General Complains of fever CV Denies CP, palpitation, diaphoresis, or radiation of pain Resp Denies SOB or cough GI Complains of abdominal pain, decreased appetite, and diarrhea. denies increased frequency or dysuria Neuro denies numbness or weakness PE General A&O x1, NAD HEENT NCAT CV RRR, no murmur Resp CTA, no respiratory distress Abd Mild suprapubic TTP. no distension, normal BS Extremities no edema, equal pedal pulses Neuro no focal deficits, CN II-XII intact - Plan Date/Time: 03/05/19 1541 I, Ehsan Griffiths DO, have evaluated this patient and agree with findings/plan as outlined by international tax manager resident. Pertinent changes/additions are listed here. 1. Choledocholithiasis -Admit to medicine -Consult GI, plan for ERCP this evening 2. Dementia -Home meds 3. Hypothyroid -Home meds PPx SCD Diet NPO Code DNR Addendum - Attending - Attending Attestation Date/Time: 03/07/19 1830 I personally evaluated the patient and discussed the management with Dr. Zimmer. I agree with the History, Examination, Assessment and Plan documented above with any addition or exceptions noted below.
[2019-03-05] MEDS ORDERED: Sodium Chloride 0.9% 1,000 ML IV SCH (16:33)
[2019-03-05 16:36] VITALS: BMI 25.9
--- NOTE | 2019-03-05 16:40 | PDOC.BPN ---
- Brief Progress Note Date/Time: 03/05/19 7090 I personally evaluated the patient and discussed the management with Dr. Zimmer and Tunde. I agree with the History, Examination, Assessment and Plan as discussed. H&P pending. ERCP planned per ER with Dr Braswell. Possible Lap Ana Maria thereafter as indicated. We will restart home meds. IV Fluids. Jose does not demonstrate capacity to understand his medical conditions and give informed consent for care. His is present and is his surrogate decision maker.
[2019-03-05] MEDS ORDERED: Morphine 2 MG/ML SYRINGE SLOW IVP PRN (16:48)
[2019-03-05] MEDS ORDERED: Lactated Ringer's 1,000 ML IV SCH (16:48)
[2019-03-05] MEDS ORDERED: levETIRAcetam 500 mg/5 ml Oral Solution PO SCH (17:00)
[2019-03-05] MEDS ORDERED: Folic Acid 1 MG TAB PO SCH (17:00)
[2019-03-05] MEDS ORDERED: Enoxaparin Sodium 30 MG/0.3 ML SYRINGE SC SCH (17:00)
[2019-03-05] MEDS ORDERED: Levothyroxine Sodium 50 MCG TAB PO SCH (17:00)
[2019-03-05] MEDS: Lactated Ringer's 1,000 ML IV SCH ×2 (18:23→18:24)
[2019-03-05] MEDS: Docusate 100 MG CAP PO SCH (20:43)
[2019-03-05] MEDS: Donepezil HCl 10 MG TAB PO SCH (20:44)
[2019-03-05] MEDS: Piperacillin/Tazobactam 3.375 GM in Sodium Chloride 0.9% 100 ML IVPB SCH (20:46)
[2019-03-05] MEDS: Famotidine 20 MG TAB PO SCH (20:46)
[2019-03-05] MEDS: levETIRAcetam 500 mg/5 ml Oral Solution PO SCH (20:47)
--- NOTE | 2019-03-05 21:45 | CON ---
DATE OF CONSULTATION: HISTORY OF PRESENT ILLNESS: This is an 83-year-old male patient suffers from dementia who lives at home with his . His family helps him at home on a frequent basis. The patient was having increased confusion and abdominal pain, called Dr. Braswell's office and they were encouraged to go to the emergency room for evaluation. In the emergency room, the patient was evaluated with an abdominal ultrasound noting gallstones, dilated bile duct, thickened gallbladder wall, it was lobular. Liver was noted to be heterogeneous with a nodular contour without focal masses. Common duct was 0.4 cm, not dilated. There was, however, a negative sonographic Arizmendi sign, although the gallbladder was distended. The patient's liver chemistries were noted to be elevated. His bilirubin was 2.0, AST 38, ALT normal at 30, alkaline phosphatase 250, lipase 24. Sodium 135, carbon dioxide 22, BUN 25, creatinine 1.12. Coagulation studies had been normal last year, but not rechecked this hospitalization. Hepatitis serology was negative last year. HIV negative. Family Practice admitted him and consulted Dr. Simon Braswell, who called me to discuss this care. Of note is that last year 2018, the patient had a non STEMI OH, had an echocardiogram with a 40% to 45% ejection fraction, mild to moderate valvular disease and some wall dyskinesia. Dr. Whitmore saw him and discussion with the family led to noninvasive care, medical management, deciding not to do a stress test or catheterization. The patient has had cognitive decline. Earlier this year, the patient was noted to be jaundiced, had choledocholithiasis and was sent to Dr. Carmona, interventional printing bindery assistant in [place], who performed endoscopic lithotripsy of his bile duct stones. His liver function tests normalized. ALLERGIES: NONE. HABITS: Tobacco, none. Alcohol, none. Family reports he has never been a drinker. He has always been made healthy choices, been healthy and exercises. MEDICATIONS: At home, 1. Seroquel. 2. Keppra. 3. Aricept. 4. Zoloft. 5. Ecotrin. 6. Colace. PAST SURGICAL HISTORY: Tonsillectomy, radical prostatectomy, ERCP with endoscopic lithotripsy, choledocholithiasis. PAST MEDICAL HISTORY: Moderate to severe dementia, hypothyroidism, chronic urinary incontinence. On this admission, recent ultrasound suggested liver suggestive of cirrhosis. PHYSICAL EXAMINATION: VITAL SIGNS: Temperature 98.3 degrees, pulse 81, blood pressure 188/79, height 5 feet 8 inches, 25 BMI, weight 170 pounds. HEAD, EYES, EARS, NOSE AND THROAT: Unremarkable. LUNGS: Clear to auscultation. CARDIAC: Regular rate and rhythm without murmur or gallop. ABDOMEN: Soft. Mild tenderness in his upper abdomen. Left upper quadrant is as tender as his right upper quadrant. Lower abdomen is softer. EXTREMITIES: Unremarkable. ASSESSMENT AND PLAN: 1. Elevated liver function tests where his ultrasound suggested a nodular liver. Last year, 2018 serology, hepatitis negative. We would recommend repeating the serology, repeating his coagulation studies, and repeating his liver function tests in the morning. 2. Coronary artery disease, [id number] myocardial infarction last year, abnormal echocardiogram with wall motion abnormality seen by Dr. Whitmore, noninvasive cardiac care (medical management) undertaken. Repeat echocardiogram. Obtain EKG. To assess cardiac risk in case cholecystectomy is contemplated. 3. Dementia. 4. Urinary incontinence. Check urinalysis, urine culture to ensure this is not the cause of his dementia exacerbation. Discussed with Dr. Simon Braswell and the patient's son-in-law. Usually cholecystectomy is undertaken after ERCP, sphincterotomy, decompression of choledocholithiasis, but given his dementia, current management is not unreasonable. With his known coronary artery disease in the past and myocardial infarction, there is high risk of cardiac events perioperatively. Family wants comfort measures and we will discuss these issues and care pending his clinical course and radiological findings. Job ID: [id number]
[2019-03-05 22:20] LABS: Bilirubin Negative (Negative); Blood, Urine 3+ (Negative); Clarity Turbid (Clear); Glucose, Urine (Dipstick) Normal (Negative); Leukocyte Negative Leu/uL (Negative); Mucous/LPF Rare LPF (<2+); Nitrite Negative (Negative); Protein, Urine (Dipstick) 100 mg/dL (Neg-Trace); RBC/HPF Greater than 50 HPF (0-3); Renal Epithelial 0-3 HPF (None Seen); Squamous Epithelial 0-3 HPF (0-3)
[2019-03-05 22:30] LABS: Bacteria/HPF 2+ HPF (None Seen)
[2019-03-05 22:32] LABS: Urine Culture Reflex Yes Yes
--- NOTE | 2019-03-06 01:09 | CON ---
DATE OF CONSULTATION: 03/05/2019 CHIEF COMPLAINT: Abdominal pain. HISTORY OF PRESENT ILLNESS: Mr. Carney is an 83-year-old man who came into the emergency room today with right upper quadrant aching pain that has been persistent over the last 3 days. He has not had nausea or vomiting with that. He did have an episode of diarrhea today. He has had no blood in the stool. No fever or chills. The pain has been localized to the right upper quadrant, does not radiate. The patient came to the GI clinic back in October and was noted to have a coarse echotexture to his liver and a large spleen. He underwent laboratory workup to evaluate suspected cirrhosis and no obvious source for cirrhosis was identified. He had a CT scan that showed a possible mass versus stones in the bile duct. He underwent ERCP in [place] back in November and sphincterotomy and choledochoscopy, and lithotripsy was performed and the duct was cleared of stones. His alkaline phosphatase has not returned to normal since then, however, has decreased from 500 to 250. His bilirubin has been normal. Today, when he came into the emergency room, his bilirubin had bumped up and GI was consulted due to abdominal pain and worsening of underlying mental status and elevated bilirubin. Ultrasound today shows a distended gallbladder with gallbladder wall thickening and a cirrhotic nodular liver. PAST MEDICAL HISTORY: 1. Choledocholithiasis status post ERCP and lithotripsy in November. 2. Cirrhosis of the liver. 3. History of dementia. 4. Hypothyroidism. 5. Prostate cancer. PAST SURGICAL HISTORY: Tonsillectomy, prostatectomy, ERCP. FAMILY HISTORY: Negative for GI malignancy. SOCIAL HISTORY: No alcohol, tobacco, or drugs. ALLERGIES: NO KNOWN DRUG ALLERGIES. CURRENT MEDICATIONS: 1. Aricept. 2. Lovenox. 3. Famotidine. 4. Keppra. 5. Levothyroxine. 6. Quetiapine. 7. Zoloft. REVIEW OF SYSTEMS: Negative x10 systems reviewed, except as stated in history of present illness. PHYSICAL EXAMINATION: VITAL SIGNS: Temperature 99.9, pulse 78, blood pressure 180/69, oxygen saturation was reported 90% on room air. GENERAL: He is oriented to his name. He is in no acute distress. His eyes have no scleral icterus. Oropharynx is clear without lesions. No cervical or supraclavicular lymphadenopathy. LUNGS: Clear to auscultation bilaterally. HEART: Regular rate and rhythm without murmur. ABDOMEN: Soft. Mild tenderness in the right upper quadrant without guarding. Bowel sounds are present. EXTREMITIES: Trace lower extremity edema. LABORATORY DATA: White blood cell count 12.5, hemoglobin 11.7, platelets 197, creatinine 1.12, bilirubin 2.0, AST 38, ALT 30, alkaline phosphatase 250, albumin 3.5, lipase 24. INR back in November was 1.1. IMPRESSION: 1. Cholecystitis. I favor acute cholecystitis given the elevated white blood cell count and distended gallbladder with significant thickening of the gallbladder wall and abdominal pain in the right upper quadrant over the last 3 days, similar to his previous gallstone pain and mild worsening of his underlying mental status. Alternatively, he could have dropped a new stone into his bile duct given the bump in the bilirubin. The 3rd possibility would be decompensation of his liver disease as a cause of his elevated liver tests. Otherwise, his liver function has been okay with normal INR, normal albumin, previously normal bilirubin up until this point, currently normal platelet count at 197. Also normal creatinine. 2. Cirrhosis of the liver, etiology not yet determined. 3. Advanced age and underlying dementia. RECOMMENDATIONS: 1. We will recommend laparoscopic cholecystectomy with intraoperative cholangiogram. Alternative would be to start with ERCP to rule out a common duct stone; however, if he does have a stone, then he needs his gallbladder out anyway given that he would have had recurrent stones in the bile duct. If he does not have a stone in the bile duct, then we are still left with needing to treat the underlying process in the gallbladder and therefore cholecystectomy makes more sense to start with. Intraoperative cholangiogram can be performed at the time of cholecystectomy. If the cholangiogram is positive, then we can follow with ERCP under the same anesthetic. HIDA scan could be considered; however, given that he has had a recent sphincterotomy, the gallbladder might not fill any way. With the elevated liver tests and ongoing pain for the last few days, I think it is appropriate to proceed with surgery. 2. We will start antibiotics. 3. I will not add lactulose at this time since the patient did reportedly have diarrhea earlier today. 4. Recheck liver tests tomorrow morning. Job ID: [id number]
[2019-03-06] MEDS: Piperacillin/Tazobactam 3.375 GM in Sodium Chloride 0.9% 100 ML IVPB SCH ×4 (01:54→21:45)
[2019-03-06] MEDS ORDERED: Acetaminophen 650 MG in Premix Bag 1 BAG IVPB PRN (03:32)
--- NOTE | 2019-03-06 05:12 | PDOC.FM ---
- Subjective Subjective: Patient doing well this morning, states he has chills. He was febrile overnight and received Tylenol. - Objective MAR Reviewed: Yes Vital Signs & Weight: Vital Signs (12 hours) Temp Pulse Resp BP BP Pulse Ox 03/06/19 03:14 102.3 F H 82 22 H 92 L 03/05/19 23:58 98.6 F 81 18 162/70 H 91 L 03/05/19 20:00 98.3 F 81 18 188/79 H 94 L Weight Weight 77.383 kg Result Diagrams: 03/06/19 07:48 03/06/19 07:48 Phys Exam - Physical Examination Constitutional: NAD HEENT: PERRLA, moist MMs, sclera anicteric Neck: supple Respiratory: no wheezing, no rales, no rhonchi, clear to auscultation bilateral Cardiovascular: RRR, no significant murmur, no rub Gastrointestinal: soft, positive bowel sounds TTP Musculoskeletal: no edema, pulses present Neurological: non-focal, moves all 4 limbs Psychiatric: normal affect Deviation from normal: A&O x1 Skin: no rash, normal turgor Dx/Plan - Plan Plan: 83yo CM with h/o moderate to severe dementia who presents with choledocholithiasis. #Choledocholithiasis - AM labs improved from yesterday. - RUQ US positive for choledocholithiasis - Drs. Braswell and Von consulted and saw patient yesterday. GI recommends cholecystectomy. Surgery recommends pre-operative evaluation with HIDA and ECHO and abdominal Xray. Significant perioperative mortality risks discussed with family yesterday. They opted for comfort care and management of symptoms for now , until more information from scans is obtained. #Dementia - Baseline A/O x1 per , oriented to person only, no acute agitation or confusion - Cont home Zoloft, Aricept, and Seroquel - Encourage for family to be present to re-orient patient, maintain normal daily routine, awake during day and asleep at night to try to prevent acute delirium while in the hospital #Seizure disorder - last seizure >1year ago per family report - cont keppra #Hypothyroidism - cont home levothyroxine Code: DNR Diet: NPO IVF: 1L bolus, then 120cc/hr LR SCD: Lovenox PCP: Talia Disposition/LOS: Admit to Medical for choledocholithiasis. Anticipate hospitalization >48hours. Addendum - Attending - Attending Attestation Date/Time: 03/06/19 [id number] I personally evaluated the patient and discussed the management with Dr. Gann I agree with the History, Examination, Assessment and Plan documented above with any addition or exceptions noted below. Temp spike noted last pm. Today for HIDA scan and echocardiogram. Discussed with family in room patient with significant Dementia currently DNR status. Await further evaluation and GI/ Surgery recommendations.
[2019-03-06] MEDS: Levothyroxine Sodium 50 MCG TAB PO SCH (05:38)
[2019-03-06 08:29] LABS: #Basophils 0.1 thou/uL (0.0-0.2); #Neutrophils 7.9 thou/uL (1.40-6.50); %Basophils 0.8 % (0.0-1.0); %Eosinophils 0.4 % (0.0-10.0); %Lymphocytes 9.8 % (21.0-51.0); %Monocytes 10.1 % (0.0-10.0); %Neutrophils 78.9 % (42.0-75.0); Hemoglobin 10.6 g/dL (14.0-18.0); Mean Corpuscular HGB CONC 32.2 g/dL (32.0-36.0); Mean Platelet Volume 7.5 fL (7.4-10.4); Platelet Count 191 thou/uL (130-400); RBC Distribution Width 14.5 % (11.5-14.5)
[2019-03-06 08:40] LABS: INR-International Normal Ratio 1.3
[2019-03-06 08:53] LABS: ALT (SGPT) 27 U/L (8-55); AST (SGOT) 37 U/L (5-34); Alkaline Phosphatase 223 U/L (40-110); Anion Gap 14 mmol/L (10-20); BUN (Urea Nitrogen) 24 mg/dL (8.4-25.7); Bilirubin, Total 1.9 mg/dL (0.2-1.2); Calc. Creatinine Clearance 64 mL/min (70-130); Calcium 8.2 mg/dL (7.8-10.44); Carbon Dioxide 24 mmol/L (23-31); Chloride 106 mmol/L (98-107); Estimated GFR-MDRD 73; Globulin 3.3 g/dL (2.4-3.5); Glucose 117 mg/dL (83-110); Potassium 3.8 mmol/L (3.5-5.1); Protein, Total 6.3 g/dL (5.8-8.1); Sodium 140 mmol/L (136-145)
[2019-03-06] MEDS: Docusate 100 MG CAP PO SCH ×2 (09:14→21:47)
[2019-03-06] MEDS: Famotidine 20 MG TAB PO SCH ×2 (09:15→21:49)
[2019-03-06] MEDS: Enoxaparin Sodium 30 MG/0.3 ML SYRINGE SC SCH (09:16)
[2019-03-06] MEDS: levETIRAcetam 500 mg/5 ml Oral Solution PO SCH ×2 (09:16→21:54)
[2019-03-06] MEDS: Folic Acid 1 MG TAB PO SCH (09:16)
--- NOTE | 2019-03-06 09:46 | RAD ---
Acute abdominal series CLINICAL HISTORY: Constipation FINDINGS: Patchy right basilar density and pleural-based opacity present at the inferior right chest. The cardiac mediastinal silhouette is prominent. No free air seen beneath the hemidiaphragms. The bowel gas pattern is nonobstructed. Multiple metallic clips overlie the pelvis. There is diffuse osse ous degenerative change. Surgical anchors are seen at each humeral head. IMPRESSION: 1. Right basilar density which may represent right pleural fluid with adjacent atelectasis, or pneumo alysa. Recommend follow-up to resolution. 2. Nonobstructed bowel gas pattern.
[2019-03-06] MEDS: Lactated Ringer's 1,000 ML IV SCH ×2 (11:25→23:09)
[2019-03-06] MEDS ORDERED: Morphine 2 MG/ML SYRINGE SLOW IVP SCH (14:00)
--- NOTE | 2019-03-06 15:13 | NM ---
NM Hida (No EF) History: Cholelithiasis Comparison: Ultrasound prior day Findings: Planar imaging of the abdomen was performed after the intravenous administration 4.9 mCi te chnetium 99m. Subsequently, morphine 2 mg IV was administered after one hour. There is adequate hepatic uptake of radiotracer which extends quickly into the small bowel. There is no gallbladder uptake. There is, however, pericholecystic increased radiotracer hepatic uptake. Impression: Nonvisualization of gallbladder with mild pericholecystic increased radiotracer uptake in the gallbladder fossa suggesting inflammation. Cholecystitis is favored.
--- NOTE | 2019-03-06 16:04 | PRG ---
DATE OF SERVICE: 03/06/2019 SUBJECTIVE: Mr. Carney has no abdominal pain currently. He is just thirsty and wants some water or ice. He has had no nausea or vomiting today. OBJECTIVE: VITAL SIGNS: Temperature 98.7, pulse 69, blood pressure 164/70. GENERAL: He is in no acute distress. He is awake and alert. He is not oriented. LUNGS: Clear to auscultation bilaterally. HEART: Regular rate and rhythm without murmur. ABDOMEN: Soft. Minimal tenderness in the upper abdomen without guarding. Bowel sounds are present. EXTREMITIES: Trace lower extremity edema. LABORATORY DATA: White blood cell count is improved from 12.5 to 10.0, hemoglobin 10.6, platelets 191. Creatinine 0.98, bilirubin 1.9, AST 37, ALT 27, alkaline phosphatase 223. IMPRESSION: 1. Apparent acute cholecystitis. HIDA scan today shows nonfilling of the gallbladder, which in itself could be related to post sphincterotomy. However, it also showed mild pericholecystic increased radiotracer uptake in the gallbladder fossa suggesting inflammation. The bile duct drains quickly to the small bowel. 2. Previous non-ST elevation myocardial infarction back in 2017 with very mild increase in troponins, thought to be due to demand ischemia. He had an echocardiogram at that time that showed an ejection fraction of 45% to 50% with a focal area of hypokinesis. However, repeat echocardiogram today shows an ejection fraction of 55% to 60% with normal ventricular size. [id number] aortic regurgitation was noted. 3. History of choledocholithiasis, status post endoscopic retrograde cholangiopancreatography back in November with choledochoscopy and clearing of the bile duct. He could possibly have dropped a new stone down into the bile duct given the elevated bilirubin and alkaline phosphatase. His liver tests are stable and not worsening. His white blood cell count has improved. He appears to be responding appropriately to antibiotics. RECOMMENDATIONS: We will discuss options with Dr. Longoria and the family. These would include proceeding with cholecystectomy with intraoperative cholangiogram. Still the patient is increased risk given his age, dementia, cirrhosis, and prior cardiac injury that has not been fully evaluated previously due to his age and dementia. At least, his EF is normal at this point. Other options would include a cholecystostomy tube or just treatment ongoing with antibiotics. Job ID: [id number]
[2019-03-06] MEDS ORDERED: FLU VACC TS2019-20(65YR UP)/PF 180 MCG/0.5 ML SYRINGE IM ONE (17:45)
--- NOTE | 2019-03-06 21:11 | PRG ---
DATE OF SERVICE: 03/06/2019 SUBJECTIVE: Jose Carney is doing well. The patient has had his echocardiogram, which reveals improved ejection fraction of 55% to 60%, mild tricuspid regurgitation, mild to moderate aortic regurgitation. This is improved slightly from last year. The patient has had a HIDA scan with nonvisualization of the gallbladder and changes suggestive of gallbladder inflammation. White count is down from 12 to 10, hemoglobin 10. Bilirubin stable at 1.9. Family perceives that he is slightly better on intravenous antibiotics. OBJECTIVE: LUNGS: Clear to auscultation. CARDIAC: Regular rhythm without murmur or gallop. ABDOMEN: Soft, less tender, but still minimal guarding in the right upper quadrant. EXTREMITIES: Unremarkable. ASSESSMENT/PLAN: Cholecystitis. He is status post lithotripsy endoscopic, choledocholithiasis earlier this year, Dr. Pardo. He has had a sphincterotomy. HIDA scan reveals nonvisualization of the gallbladder with some inflammatory changes according to the HIDA ultrasound, however, demonstrated multiple gallstones, distended gallbladder suggesting obstruction, but sonographic negative Arizmendi sign. His bilirubin is elevated, which is a new finding. It had normalized after his previous endoscopic ultrasound lithotripsy and then he has slight elevation. Hepatitis serologies negative last year. I have discussed with family options of continued antibiotic therapy and observation, but they would like to proceed with laparoscopic cholecystectomy, understand the risks of infection, bleeding, reoperation, visceral and biliary injury. They understand the increased risk of cardiac events. They desire palliative laparoscopic cholecystectomy. Job ID: [id number]
[2019-03-06] MEDS: Donepezil HCl 10 MG TAB PO SCH (21:49)
[2019-03-07] MEDS: Piperacillin/Tazobactam 3.375 GM in Sodium Chloride 0.9% 100 ML IVPB SCH ×4 (01:44→20:36)
--- NOTE | 2019-03-07 06:10 | PDOC.FM ---
- Subjective Subjective: Doing well this morning, no complaints. - Objective MAR Reviewed: Yes Vital Signs & Weight: Vital Signs (12 hours) Temp Pulse Resp BP Pulse Ox 03/06/19 20:00 98.3 F 79 18 147/65 H 92 L Weight Admit Weight 77.383 kg Weight 77.383 kg I&O: 03/05/19 03/06/19 03/07/19 06:59 06:59 05:59 Intake Total 1500 Output Total 1 Balance 1499 Result Diagrams: 03/07/19 14:14 03/07/19 05:44 Phys Exam - Physical Examination Constitutional: NAD HEENT: PERRLA, moist MMs, sclera anicteric Neck: supple, full ROM Respiratory: no wheezing, no rales, no rhonchi, clear to auscultation bilateral Cardiovascular: RRR, no significant murmur, no rub Gastrointestinal: soft, positive bowel sounds TTP Musculoskeletal: no edema, pulses present Neurological: non-focal, normal sensation, moves all 4 limbs Psychiatric: normal affect Deviation from normal: A&O to person and place. Skin: no rash, normal turgor Dx/Plan - Plan Plan: 83yo CM with h/o moderate to severe dementia who presents with choledocholithiasis. #Choledocholithiasis - AM labs improved from yesterday. - RUQ US positive for choledocholithiasis - Drs. Braswell and Von consulted. Will proceed with cholecystecomy today. #Dementia - Baseline A/O x1 per , oriented to person only, no acute agitation or confusion - Cont home Zoloft, Aricept, and Seroquel - Encourage for family to be present to re-orient patient, maintain normal daily routine, awake during day and asleep at night to try to prevent acute delirium while in the hospital #Seizure disorder - last seizure >1year ago per family report - cont keppra #Hypothyroidism - cont home levothyroxine Code: DNR Diet: NPO IVF: 1L bolus, then 120cc/hr LR SCD: Lovenox PCP: Talia Disposition/LOS: Admit to Medical for choledocholithiasis. Anticipate hospitalization >48hours. Addendum - Attending - Attending Attestation Date/Time: 03/07/19 110 I personally evaluated the patient and discussed the management with Dr. Gann I agree with the History, Examination, Assessment and Plan documented above with any addition or exceptions noted below. For surgery today family aware risks and benefits.
[2019-03-07] MEDS: Lactated Ringer's 1,000 ML IV SCH ×3 (06:16→17:57)
[2019-03-07 07:14] LABS: ALT (SGPT) 23 U/L (8-55); AST (SGOT) 33 U/L (5-34); Albumin 2.7 g/dL (3.4-4.8); Alkaline Phosphatase 195 U/L (40-110); Anion Gap 12 mmol/L (10-20); BUN (Urea Nitrogen) 19 mg/dL (8.4-25.7); Bilirubin, Total 1.4 mg/dL (0.2-1.2); Calc. Creatinine Clearance 75 mL/min (70-130); Calcium 8.1 mg/dL (7.8-10.44); Carbon Dioxide 23 mmol/L (23-31); Chloride 105 mmol/L (98-107); Estimated GFR-MDRD 89; Globulin 3.5 g/dL (2.4-3.5); Glucose 102 mg/dL (83-110); Potassium 3.3 mmol/L (3.5-5.1); Protein, Total 6.2 g/dL (5.8-8.1); Sodium 137 mmol/L (136-145)
[2019-03-07 08:11] LABS: Hemoglobin 9.5 g/dL (14.0-18.0); Mean Corpuscular HGB CONC 31.8 g/dL (32.0-36.0); Mean Corpuscular Hemoglobin 27.8 pg (27.0-31.0); Mean Corpuscular Volume 87.5 fL (78.0-98.0); Mean Platelet Volume 7.7 fL (7.4-10.4); Platelet Count 194 thou/uL (130-400); RBC Distribution Width 14.3 % (11.5-14.5); Red Blood Cell (RBC) Count 3.42 mill/uL (4.70-6.10); White Blood Cell (WBC) Count 8.7 thou/uL (4.8-10.8)
[2019-03-07 08:13] LABS: Eosinophils 8 % (0-10); Lymphocytes 16 % (21-51); MDiff Complete? YES; Monocytes 10 % (0-10); Neutrophil 66 % (42-75); Platelet Morphology Comment Appears Adequate; RBC Morphology Normal
[2019-03-07] MEDS: Levothyroxine Sodium 50 MCG TAB PO SCH (08:17)
[2019-03-07] MEDS: Famotidine 20 MG TAB PO SCH ×2 (08:19→21:16)
[2019-03-07] MEDS: Folic Acid 1 MG TAB PO SCH (08:19)
[2019-03-07] MEDS: Docusate 100 MG CAP PO SCH ×2 (08:19→21:13)
[2019-03-07] MEDS: levETIRAcetam 500 mg/5 ml Oral Solution PO SCH ×2 (08:22→21:16)
[2019-03-07] MEDS ORDERED: Potassium Chloride 20 MEQ in Premix Bag 1 BAG IVPB SCH (09:00)
[2019-03-07] MEDS: Enoxaparin Sodium 30 MG/0.3 ML SYRINGE SC SCH (11:43)
[2019-03-07] MEDS ORDERED: Rocuronium Bromide 10 MG/ML (10ML VIAL) ONE (12:47)
[2019-03-07] MEDS ORDERED: Dexamethasone 20 MG/5 ML VIAL ONE (12:47)
[2019-03-07] MEDS ORDERED: PROPOFOL 200 MG/20 ML VIAL ONE (12:47)
[2019-03-07] MEDS ORDERED: Ondansetron PF 4 MG/2 ML Vial ONE (12:47)
[2019-03-07] MEDS ORDERED: Glycopyrrolate 0.2 MG/ML 5 ML SYRINGE ONE (12:47)
[2019-03-07] MEDS ORDERED: Lidocaine 1% PF 5 ML VIAL ONE (12:47)
[2019-03-07] MEDS ORDERED: Iothalamate Meglumine 60% 50 ML VIAL FS ONE (12:56)
[2019-03-07] MEDS ORDERED: Bupivacaine HCl 0.5%/Epinephrine 1:200,000/PF 30 ml Vial ONE (12:56)
[2019-03-07] MEDS ORDERED: Fentanyl 100 MCG/2 ML VIAL ONE ×2 (13:02→16:10)
[2019-03-07] MEDS ORDERED: Piperacillin/Tazobactam 3.375 GM VIAL ONE (13:52)
[2019-03-07 14:49] LABS: Hemoglobin 12.7 g/dL (14.0-18.0)
--- NOTE | 2019-03-07 15:28 | PRG ---
DATE OF SERVICE: 03/07/2019 SUBJECTIVE: Mr. Carney states he is feeling better today. Minimal abdominal discomfort currently. OBJECTIVE: VITAL SIGNS: Temperature 100.0 max, current temperature 98.2, pulse 68, blood pressure 150/56, oxygen saturation 92% on room air. GENERAL: He was examined in preop area. LUNGS: Clear to auscultation bilaterally. HEART: Regular rate and rhythm without murmur. ABDOMEN: Soft. No significant tenderness currently. Bowel sounds are present. EXTREMITIES: Trace lower extremity edema. LABORATORY DATA: White blood cell count 8.7, hemoglobin 9.5, platelets 194. Bilirubin 1.4, AST 33, ALT 23, alkaline phosphatase 195. IMPRESSION: 1. Acute cholecystitis. Symptoms are improving with antibiotics. 2. Abnormal liver function tests. His bilirubin and alkaline phosphatase have remained mildly elevated and improving. He could have a recurrent stone in his bile duct or the elevated liver tests could be related to ongoing inflammation from acute cholecystitis. RECOMMENDATIONS: We have discussed risks and benefits in detail with the patient's family. Ultimately, they would like to proceed with cholecystectomy. Intraoperative cholangiogram will be performed and if this shows a stone in the bile duct, we will follow the cholecystectomy immediately under the same sedation with ERCP. Job ID: [id number]
[2019-03-07] MEDS ORDERED: traMADol HCl 50 MG TAB PO PRN (16:03)
[2019-03-07] MEDS: Acetaminophen 1,000 MG in Premix Bag 1 BAG IVPB SCH (18:21)
[2019-03-07] MEDS ORDERED: Ondansetron ODT 4 MG TAB SL PRN (18:48)
[2019-03-07] MEDS ORDERED: hydrALAZINE 20 MG/ML VIAL SLOW IVP PRN (19:03)
[2019-03-07] MEDS: Donepezil HCl 10 MG TAB PO SCH (21:15)
[2019-03-08] MEDS: Lactated Ringer's 1,000 ML IV SCH ×2 (00:28→11:17)
[2019-03-08] MEDS: Acetaminophen 1,000 MG in Premix Bag 1 BAG IVPB SCH ×3 (00:29→11:12)
[2019-03-08] MEDS: Ketorolac Tromethamine 30 MG/ML VIAL IVP PRN (00:29)
[2019-03-08] MEDS: Piperacillin/Tazobactam 3.375 GM in Sodium Chloride 0.9% 100 ML IVPB SCH ×4 (01:21→19:58)
--- NOTE | 2019-03-08 01:24 | OP ---
DATE OF PROCEDURE: 03/07/2019 PREOPERATIVE DIAGNOSES: Acute cholecystitis, cholelithiasis several months ago, status post endoscopic retrograde cholangiopancreatography, endoscopic lithotripsy for choledocholithiasis, dementia. POSTOPERATIVE DIAGNOSES: Acute cholecystitis, cholelithiasis several months ago, status post endoscopic retrograde cholangiopancreatography, endoscopic lithotripsy for choledocholithiasis, dementia, purulent cholecystitis and severe inflammation and scarring, cirrhotic liver. The plan was for laparoscopic cholecystectomy, cholangiogram as bilirubin had been slightly elevated, but normalized today, but findings at operation revealed severe scar and inflammation. A cholangiogram could not be performed. PROCEDURE PERFORMED: Laparoscopic video cholecystectomy, #19 Gold PALBO drain, Carter used, cirrhotic liver appreciated, mildly nodular. ESTIMATED BLOOD LOSS: 200 mL. Preoperative hemoglobin 9-10. 1 unit of blood transfused, 2 units of fresh frozen plasma transfused postoperatively. DESCRIPTION OF PROCEDURE: Patient was taken to the operating room, where under general anesthesia, abdomen was prepared with ChloraPrep and draped in routine fashion. Local anesthetic 0.5% Marcaine with epinephrine was infiltrated in the skin and subcutaneous tissue about the operative site. Infraumbilical incision was made. Pneumoperitoneum to 15 mmHg was obtained with a Veress needle, replaced with a 5 port, video laparoscope was inserted. Right subxiphoid incision was made and 11 port placed. Right subcostal incision was made at midclavicular and anterior axillary line and the 5 port was placed. Liver was noted to be mildly cirrhotic. There was severe inflammation in the right upper quadrant. There was omentum adherent to the falciform ligament and the liver edge and the gallbladder. I obtained a LigaSure to help take down these adhesions from the falciform ligament, freed the omentum from its chronic inflammatory attachments to the gallbladder and liver edge. The gallbladder was identified, wall was markedly inflamed, thickened. Gallbladder was difficult to grasp, but it was grasped and reflected cephalad. I was able to dissect the body of the gallbladder down towards the infundibulum. As we retracted this, there were purulent contents drained that were evacuated with suction throughout the case. Careful dissection in the triangle of Calot and infundibulum revealed the cystic duct. Critical view obtained as best we could with severe inflammation. It was doubly clipped and divided. There was no drainage. Cystic artery clipped and divided. Gallbladder dissected free from severe inflammatory attachments to the liver and placed in Endobag and removed. Good hemostasis obtained with cautery. Abdominal cavity thoroughly irrigated. Good hemostasis assured with cautery. LigaSure was also used. Carter was sprayed in the liver bed and over the omentum. Two separate vials were used. A #19 Gold PABLO drain placed in the right subhepatic space and brought out through the right lateral trocar site and secured with 3-0 nylon. Good hemostasis was noted. Irrigant and pneumoperitoneum were evacuated, and all instruments were removed. Subxiphoid fascia was approximated with 0 Vicryl UR needle and all skin incisions approximated with subdermal 4-0 Monocryl and Ep[place]us glue applied. Job ID: [id number]
--- NOTE | 2019-03-08 05:39 | PDOC.FM ---
- Subjective Subjective: Patient doing well this morning, per son-in-law not in as much pain since the procedure yesterday. PABLO drained 740ml overnight, serosanguinous fluid. - Objective Vital Signs & Weight: Vital Signs (12 hours) Temp Pulse Resp BP BP Pulse Ox 03/08/19 05:27 97.9 F 65 18 109/62 99 03/08/19 00:41 98.0 F 82 17 147/68 H 97 03/07/19 22:06 81 18 154/68 H 97 03/07/19 21:45 83 137/70 03/07/19 20:50 88 166/74 H 03/07/19 20:21 98.3 F 83 18 185/77 H 94 L 03/07/19 19:50 85 182/79 H 03/07/19 19:36 85 182/79 H 03/07/19 19:32 94 L Weight Admit Weight 77.383 kg Weight 77.383 kg I&O: 03/06/19 03/07/19 03/08/19 07:59 06:59 06:59 Intake Total Output Total 90 Balance -90 Result Diagrams: 03/08/19 06:15 03/08/19 06:15 Phys Exam - Physical Examination Constitutional: NAD HEENT: moist MMs, sclera anicteric Neck: supple, full ROM Respiratory: no wheezing, clear to auscultation bilateral Cardiovascular: RRR, no significant murmur Gastrointestinal: non-tender bandages clean/dry/intact Musculoskeletal: no edema, pulses present Neurological: normal sensation, moves all 4 limbs Lymphatic: no nodes Psychiatric: normal affect Deviation from normal: A&O x 1 Skin: no rash, normal turgor Dx/Plan (1) Choledocholithiasis Code(s): K80.50 - CALCULUS OF BILE DUCT W/O CHOLANGITIS OR CHOLECYST W/O OBST Status: Acute (2) Alzheimer's dementia Code(s): G30.9 - ALZHEIMER'S DISEASE, UNSPECIFIED; F02.80 - DEMENTIA IN OTH DISEASES CLASSD ELSWHR W/O BEHAVRL DISTURB Status: Chronic (3) Hypothyroidism Code(s): E03.9 - HYPOTHYROIDISM, UNSPECIFIED Status: Chronic - Plan Plan: 83yo CM with h/o moderate to severe dementia admitted for choledocholithiasis. #Choledocholithiasis - RUQ U/S positive for choledocholithiasis - Drs. Braswell and Von consulted, appreciate recs - Cholecystecomy 03/07, op note detailed thickened gall bladder with purulence appreciated, PABLO drain left in place - PABLO drain drained 740ml serosanguinous fluid overnight; per son-in-law patient will likely stay until PABLO drain draining clear fluid #Dementia - Baseline A/O x1 per , oriented to person only, no acute agitation or confusion - Cont home Zoloft, Aricept, and Seroquel - Encourage for family to be present to re-orient patient, maintain normal daily routine, awake during day and asleep at night to try to prevent acute delirium while in the hospital #Seizure disorder - last seizure >1year ago per family report - cont keppra #Hypothyroidism - cont home levothyroxine Code: DNR Diet: NPO IVF: 100cc/hr LR SCD: Lovenox PCP: Talia Disposition/LOS: Admitted for choledocholithiasis, s/p lap lucila 03/07.
[2019-03-08] MEDS: Levothyroxine Sodium 50 MCG TAB PO SCH (06:06)
[2019-03-08 06:38] LABS: #Basophils 0.1 thou/uL (0.0-0.2); #Monocytes 0.7 thou/uL (0.11-0.59); #Neutrophils 6.6 thou/uL (1.40-6.50); %Basophils 0.7 % (0.0-1.0); %Eosinophils 0.2 % (0.0-10.0); %Lymphocytes 11.9 % (21.0-51.0); %Monocytes 8.8 % (0.0-10.0); %Neutrophils 78.4 % (42.0-75.0); Mean Corpuscular HGB CONC 32.4 g/dL (32.0-36.0); Mean Corpuscular Hemoglobin 28.6 pg (27.0-31.0); Mean Corpuscular Volume 88.5 fL (78.0-98.0); Platelet Count 171 thou/uL (130-400); RBC Distribution Width 14.2 % (11.5-14.5); Red Blood Cell (RBC) Count 3.15 mill/uL (4.70-6.10); White Blood Cell (WBC) Count 8.4 thou/uL (4.8-10.8)
[2019-03-08 06:50] LABS: ALT (SGPT) 53 U/L (8-55); AST (SGOT) 107 U/L (5-34); Albumin 2.5 g/dL (3.4-4.8); Alkaline Phosphatase 151 U/L (40-110); Anion Gap 10 mmol/L (10-20); BUN (Urea Nitrogen) 21 mg/dL (8.4-25.7); Bilirubin, Total 0.7 mg/dL (0.2-1.2); Calc. Creatinine Clearance 64 mL/min (70-130); Calcium 7.7 mg/dL (7.8-10.44); Carbon Dioxide 24 mmol/L (23-31); Chloride 106 mmol/L (98-107); Estimated GFR-MDRD 74; Glucose 149 mg/dL (83-110); Potassium 3.7 mmol/L (3.5-5.1); Protein, Total 5.5 g/dL (5.8-8.1); Sodium 136 mmol/L (136-145)
[2019-03-08] MEDS: Docusate 100 MG CAP PO SCH ×2 (08:13→22:22)
[2019-03-08] MEDS: Enoxaparin Sodium 30 MG/0.3 ML SYRINGE SC SCH (08:14)
[2019-03-08] MEDS: levETIRAcetam 500 mg/5 ml Oral Solution PO SCH ×2 (08:14→22:23)
[2019-03-08] MEDS: Famotidine 20 MG TAB PO SCH ×2 (08:14→22:25)
[2019-03-08] MEDS: Folic Acid 1 MG TAB PO SCH (08:15)
--- NOTE | 2019-03-08 13:32 | PRG ---
DATE OF SERVICE: 03/08/2019 SUBJECTIVE: Mr. Carney is doing well today. He is tolerating his diet and all of his food. OBJECTIVE: VITAL SIGNS: Temperature 98.3, pulse 65, blood pressure 111/58. LUNGS: Clear to auscultation. CARDIAC: Regular rate and rhythm. No murmur or gallop. ABDOMEN: Soft, nontender. PABLO drain, serous drainage. 740 mL. This is serosanguineous. LABORATORY DATA: This morning, his hemoglobin is 9, white count 8.4. His bilirubin is normal at 0.7. Electrolytes are normal. ASSESSMENT AND PLAN: Acute cholecystitis. Microbiology swab reveals gram-negative armen. The patient is on Zosyn. We would continue Zosyn another 24 hours. If he is doing well tomorrow, drain can be removed. He can be discharged home on Augmentin for [address] Minor is covering for me and will see him tomorrow. I will see Mr. Carney in the office in 2 to 3 weeks. Job ID: [id number]
--- NOTE | 2019-03-08 13:35 | PRG ---
DATE OF SERVICE: 03/08/2019 SUBJECTIVE: Mr. Carney is doing well without any abdominal pain. He is eating a solid diet without any problems. He is alert and interactive. OBJECTIVE: VITAL SIGNS: Temperature 98.3, pulse 65, blood pressure 111/58. LUNGS: Clear to auscultation with some decreased breath sounds in the bases. HEART: Regular rate and rhythm without murmur. ABDOMEN: Soft, nontender, nondistended. Bowel sounds are present. EXTREMITIES: Trace lower extremity edema. LABORATORY DATA: His hemoglobin is 9.0, hemoglobin prior to surgery yesterday was 9.5, platelets 171, and white blood cell count 8.4. INR 1.3, creatinine 0.97, bilirubin 0.7, AST 107, ALT 53, alkaline phosphatase 153. IMPRESSION: 1. Acute cholecystitis status post cholecystectomy yesterday. 2. Cirrhosis of the liver. His liver tests were actually trending down after the cholecystitis. It is thought that the purulent severe cholecystitis noted. At the time of the surgery, it is likely related to the elevated liver tests. He does not appear decompensated from a cirrhosis standpoint at this time. RECOMMENDATIONS: 1. Continue to monitor the trend of his liver tests. 2. There are no signs of choledocholithiasis at this point. 3. I will sign off. Please call if GI can be of assistance. Job ID: [id number]
--- NOTE | 2019-03-08 15:16 | PRG ---
DATE OF SERVICE: 03/08/2019 Mr. Carney is a very unfortunate 83-year-old man, who was found to have . He was taken to surgery, where he was found to have pus in the gallbladder. He underwent a laparoscopic cholecystectomy and is currently actually looking very well for what he has been through. We will continue to follow with the surgeon and advance his diet. Job ID: [id number]
[2019-03-08] MEDS: Donepezil HCl 10 MG TAB PO SCH (22:22)
[2019-03-08] MEDS ORDERED: Acetaminophen 1,000 MG in Premix Bag 1 BAG IVPB PRN (23:59)
[2019-03-09] MEDS: Ketorolac Tromethamine 30 MG/ML VIAL IVP PRN (00:57)
[2019-03-09] MEDS: Piperacillin/Tazobactam 3.375 GM in Sodium Chloride 0.9% 100 ML IVPB SCH ×2 (02:43→10:53)
[2019-03-09] MEDS: Levothyroxine Sodium 50 MCG TAB PO SCH (04:56)
--- NOTE | 2019-03-09 05:31 | PDOC.FM ---
- Subjective Subjective: Patient doing well this morning. Denies abdominal pain, though reports of abdominal fullness. FREDDY in room and reports he did well overnight. Discussed that depending on how well patient does throughout the day he may be able to go home this afternoon, if not then likely tomorrow. FREDDY and patient agreeable with plan of care. - Objective Vital Signs & Weight: Vital Signs (12 hours) Temp Pulse Resp BP Pulse Ox 03/09/19 05:12 98.4 F 78 18 137/68 91 L 03/09/19 00:00 99.3 F 89 17 168/68 H 91 L 03/08/19 20:18 97.9 F 83 17 165/72 H 91 L Weight Admit Weight 77.383 kg Weight 77.383 kg I&O: 03/07/19 03/08/19 03/09/19 06:59 06:59 06:59 Intake Total 1642 1100 Output Total 740 450 Balance 902 650 Result Diagrams: 03/09/19 05:37 03/09/19 05:37 Phys Exam - Physical Examination Constitutional: NAD HEENT: moist MMs, sclera anicteric Neck: supple, full ROM Respiratory: no wheezing, clear to auscultation bilateral Cardiovascular: RRR, no significant murmur Gastrointestinal: non-tender, positive bowel sounds abdominal distension Musculoskeletal: no edema, pulses present Neurological: normal sensation, moves all 4 limbs Lymphatic: no nodes Psychiatric: normal affect Deviation from normal: A&O x1 Skin: no rash, normal turgor Dx/Plan (1) Choledocholithiasis Code(s): K80.50 - CALCULUS OF BILE DUCT W/O CHOLANGITIS OR CHOLECYST W/O OBST Status: Acute (2) Alzheimer's dementia Code(s): G30.9 - ALZHEIMER'S DISEASE, UNSPECIFIED; F02.80 - DEMENTIA IN OTH DISEASES CLASSD ELSWHR W/O BEHAVRL DISTURB Status: Chronic (3) Hypothyroidism Code(s): E03.9 - HYPOTHYROIDISM, UNSPECIFIED Status: Chronic - Plan Plan: 83yo CM with h/o moderate to severe dementia admitted for choledocholithiasis. #Choledocholithiasis - RUQ U/S positive for choledocholithiasis - Drs. Braswell and oVn consulted, appreciate recs - Cholecystecomy 03/07, op note detailed thickened gall bladder with purulence appreciated, PABLO drain left in place - PABLO drain drained 190ml serosanguinous fluid overnight - Gallbladder culture growing gram - rods, sensitivities pending - Per Dr. Longoria, patient to remain on zosyn throughout today and if he does well the drain can be removed and he can go home on augmentin with follow up in 2-3 weeks - Patient has not yet had a bm yet since surgery; abdominal distension present though not ttp and +BS, added miralax to regimen #Dementia - Baseline A/O x1 per , oriented to person only, no acute agitation or confusion - Cont home Zoloft, Aricept, and Seroquel - Encourage for family to be present to re-orient patient, maintain normal daily routine, awake during day and asleep at night to try to prevent acute delirium while in the hospital #Seizure disorder - last seizure >1year ago per family report - cont keppra #Hypothyroidism - cont home levothyroxine Code: DNR Diet: Low Sodium IVF: 100cc/hr LR SCD: Lovenox PCP: Talia Disposition/LOS: Admitted for choledocholithiasis, s/p lap lucila 03/07. If patient does well today can possibly go home this afternoon on augmentin with f/u with Dr. Longoria. Miralax added to BM regimen, due to stool since surgery. Addendum - Attending - Attending Attestation Date/Time: 03/10/19 [id number] I personally evaluated the patient and discussed the management with Dr. Bolanos on 03/09/2019 I agree with the History, Examination, Assessment and Plan documented above with any addition or exceptions noted below - Patient denies any complaints. Tolerating diet. Afebrile VSS. A/P: 1) POD#2 s/p cholecystectomy - doing well. Advance diet as toelrated. Continue IV abx pending evaluation by surgery and possible transition to po. Possible d/c home later today.
[2019-03-09 06:28] LABS: Band 1 % (5-11); Eosinophils 1 % (0-10); Hypochromia SLIGHT = 6-15 cells (100X) (0-5/hpf); Lymphocytes 8 % (21-51); MDiff Complete? YES; Mean Corpuscular HGB CONC 32.2 g/dL (32.0-36.0); Mean Corpuscular Hemoglobin 28.4 pg (27.0-31.0); Mean Corpuscular Volume 88.2 fL (78.0-98.0); Mean Platelet Volume 7.6 fL (7.4-10.4); Monocytes 2 % (0-10); Neutrophil 88 % (42-75); Platelet Count 207 thou/uL (130-400); Platelet Morphology Comment Appears Adequate; RBC Distribution Width 14.4 % (11.5-14.5); Red Blood Cell (RBC) Count 3.16 mill/uL (4.70-6.10); White Blood Cell (WBC) Count 10.8 thou/uL (4.8-10.8)
[2019-03-09 06:40] LABS: ALT (SGPT) 48 U/L (8-55); AST (SGOT) 67 U/L (5-34); Albumin 2.4 g/dL (3.4-4.8); Alkaline Phosphatase 163 U/L (40-110); Anion Gap 12 mmol/L (10-20); BUN (Urea Nitrogen) 20 mg/dL (8.4-25.7); Bilirubin, Total 0.8 mg/dL (0.2-1.2); Calc. Creatinine Clearance 74 mL/min (70-130); Calcium 7.7 mg/dL (7.8-10.44); Carbon Dioxide 24 mmol/L (23-31); Chloride 104 mmol/L (98-107); Estimated GFR-MDRD 87; Globulin 3.4 g/dL (2.4-3.5); Glucose 111 mg/dL (83-110); Potassium 3.6 mmol/L (3.5-5.1); Protein, Total 5.8 g/dL (5.8-8.1); Sodium 136 mmol/L (136-145)
[2019-03-09] MEDS ORDERED: Polyethylene Glycol 3350 17 GM Packet PO SCH (09:00)
[2019-03-09] MEDS: Docusate 100 MG CAP PO SCH (10:53)
[2019-03-09] MEDS: Enoxaparin Sodium 30 MG/0.3 ML SYRINGE SC SCH (10:56)
[2019-03-09] MEDS: levETIRAcetam 500 mg/5 ml Oral Solution PO SCH (10:58)
[2019-03-09] MEDS: Famotidine 20 MG TAB PO SCH (11:01)
[2019-03-09] MEDS: Folic Acid 1 MG TAB PO SCH (11:01)
--- NOTE | 2019-03-09 13:55 | PQF ---
KATARINA KERR NIKKI, MD *r [id number] CLINICAL DOCUMENTATION IMPROVEMENT CLARIFICATION FORM: ICD-10 Updated PLEASE DO AN ADDENDUM TO THE PROGRESS NOTE WITH ANY DOCUMENTATION UPDATES OR ADDITIONS AND CARRY THROUGH TO DC SUMMARY. THANK YOU. DATE: 03/09/19 ATTN: Dr. Bolanos Please exercise your independent, professional judgment in responding to the clarification form. Clinical indicators are provided on the bottom of this form for your review Please check appropriate box(s): [ ] SIRS due to Non-infectious process: [x]Acute cholecystitis [ ] With organ dysfunction [ ] Without organ dysfunction [ ] Sepsis due to infected gallbladder [ ] Other diagnosis [ ] Unable to determine In addition, please specify: Present on Admission (POA): [x] Yes [ ] No [ ] Unable to determine For continuity of documentation, please document condition throughout progress notes and discharge summary. Thank You. CLINICAL INDICATORS - SIGNS / SYMPTOMS / LABS / RESULTS AND LOCATION IN MR Fever >100.4--> 03/06 Temp 102.3 per VS Leukocytosis >12k or <4k--> 03/06 wbc 12.5 per lab "Gallbladder culture growing gram-rods" per 03/09 Dr. Bolanos note RISK FACTORS / RESULTS AND LOCATION IN MR 03/06 Braswell: "apparent acute cholecystitis TREATMENT / RESULTS AND LOCATION IN MR IV Fluids--> LR 1 L bolus then 120 cc/hr 03/05 per orders Antibiotics--> Zosyn 3.375 Q6H 03/05-03/09 per orders Procedure: lap cholecystectomy 03/08 per Op note (This form is maintained as a part of the permanent medical record) 2014 [employer]. All Rights Reserved Kady Ramachandran, RN, BSN, CCDS [email or web address]
--- NOTE | 2019-03-09 16:28 | PRG ---
DATE OF SERVICE: 03/09/2019 SUBJECTIVE: Mr. Carney is doing well today. He has no complaints. He has been up and walking. He is tolerating regular food. He had a bowel movement. PHYSICAL EXAMINATION: VITAL SIGNS: He is afebrile. Vital signs are stable. ABDOMEN: Slightly distended. His wounds are healing well. His PABLO has serosanguineous drainage. ASSESSMENT: Acute cholecystitis, status post laparoscopic cholecystectomy, drain placement by Dr. Longoria. PLAN: Discontinue PABLO drain. It is okay for him to be discharged. He is to follow up with Dr. Longoria in a few weeks. Job ID: [id number]
[2019-03-09 16:46] VITALS: BP 167/69; TEMP 98.9
[2019-03-10] MEDS ORDERED: Acetaminophen 500 MG TAB PO PRN (06:00)
--- NOTE | 2019-03-10 12:04 | DIS ---
DATE OF ADMISSION: 03/05/2019 DATE OF DISCHARGE: 03/09/2019 ADMITTING RESIDENT: Laron Zimmer MD ADMITTING ATTENDING: Zain Carney MD DISCHARGE RESIDENT: Marika Bolanos MD DISCHARGE ATTENDING: Darlyn Peralta MD CONSULTS: GI, PT, and OT. PROCEDURES: Cholecystectomy, HIDA scan. IMAGIN. HIDA scan: Non-visualization of gallbladder with mild pericholecystic increased radiotracer uptake in the gallbladder fossa suggesting inflammation. Cholecystitis is favored. 2. Echo: EF 55% to 60%, somewhat thickened aortic valve leaflets, mild-to- moderate aortic regurgitation, mild tricuspid regurgitation, normal left ventricular size. 3. Acute abdomen series: Right basilar density, which may represent right pleural fluid with adjacent atelectasis or pneumonia. Nonobstructive bowel gas pattern. 4. Abdominal ultrasound: Gallbladder dilated to 9.6 cm, apparent stones, thickened gallbladder wall up to 1.4 cm, no pericholecystic fluid, common bile duct is 0.4 cm, thinning of the cortex of the right kidney. PRIMARY DIAGNOSIS: Choledocholithiasis. SECONDARY DIAGNOSES: Dementia, seizure disorder, hypothyroidism. DISCHARGE MEDICATIONS: 1. Augmentin 875/125 p.o. b.i.d. x5 days. 2. Aspirin 81 mg p.o. at bedtime. 3. Docusate 100 mg p.o. daily. 4. Donepezil hydrochloride 5 mg p.o. at bedtime. 5. Folic acid 1 mg p.o. daily. 6. Levothyroxine 50 mcg p.o. daily. 7. Quetiapine 50 mg p.o. at bedtime. 8. Sertraline 150 mg p.o. at bedtime. 9. Sertraline 75 mg p.o. daily. 10. Keppra 750 mg p.o. daily. 11. Keppra 375 mg p.o. at bedtime. Discontinued medications: 1. Zosyn. 2. Lovenox. 3. Hydralazine. 4. Ketorolac. 5. Zofran. 6. Quetiapine 200 mg p.o. at bedtime. HISTORY OF PRESENT ILLNESS AND HOSPITAL COURSE: An 83-year-old male with history of dementia and hypothyroidism, who presented with symptoms of abdominal pain and decreased p.o. intake. He was diagnosed with choledocholithiasis, admitted to the hospital, and started on zosyn and IVF. The patient had significant risk factors for mortality for surgery and thus comfort care was undertaken during the initial days of the hospitalization until more information could be gathered from further imaging studies. See above. The patient had a cholecystectomy on 03/07 and he tolerated the procedure well. A PABLO drain was left in place as during the surgery, there was purulence that was drained and evacuated. The PABLO drain was left in place until the day of discharge as the amount of serosanguineous fluid had greatly decreased. On the day of discharge, the patient was stable, his abdominal pain has markedly improved, and he and his were agreeable with the current plan of care of being sent home on Augmentin with followup with his primary care provider. DISPOSITION: Stable. DISCHARGE INSTRUCTIONS: 1. Location: Home. 2. Diet: Regular. 3. Activity: As tolerated. 4. Follow up with PCP within one week and with Dr. Longoria within 2 to 3 weeks. Job ID: [id number] MTDD
--- NOTE | 2019-03-11 01:58 | PQF ---
KATARINA KERR ANNA MD [id number] CLINICAL DOCUMENTATION CLARIFICATION FORM: POST DISCHARGE Addendum to original discharge summary date: ____ Late entry note date: __ DATE: 03/11/19 ATTN: Darlyn Sykes Please exercise your independent, professional judgment in responding to the clarification form. Clinical indicators are provided on the bottom of this form for your review Please check appropriate box(s): [ ] Acute blood loss anemia [ ] Post-op anemia related to acute blood loss [ x ] Chronic Anemia: [ ] Blood loss [ ] Hemolytic [ x ] Simple [ ] Due to Vitamin B12 Deficiency [ ] Anemia [ ] Other diagnosis [ ] Unable to determine In addition, please specify: Present on Admission (POA): [ x ] Yes [ ] No [ ] Unable to determine For continuity of documentation, please document condition throughout progress notes and discharge summary. Thank You. CLINICAL INDICATORS - SIGNS / SYMPTOMS / LABS Family med H&P p1 03/05 - Respiratory rate :22 Operative report p1 03/07 Estimated blood loss 200ml Operative report p1 03/07 Preoperative hemoglobin 9-10 Laboratory Hemotology 03/07 Hgb 12.7, Hct 39.8 Laboratory Hemotology 03/08 Hgb 9.0, Hct 27.9 RISK FACTORS Family med H&P p1 03/05 - 83 year-old Operative report p1 03/07 s/p Laparoscopic Video cholecystectomy Operative report p1 03/07 - Acute Cholecystitis TREATMENTS: Blood bank 03/07 -2 units of Frest frozen plasma Blood bank 03/07 -1 units of packed RBC (This form is maintained as a part of the permanent medical record) 2014 [employer]. All Rights Reserved Ambreen [email or web address] [not provided] MTDD
--- NOTE | 2019-03-11 02:04 | PQF ---
KATARINA KERR ANNA MD [id number] [id number]- [id number] CLINICAL DOCUMENTATION CLARIFICATION FORM: POST DISCHARGE Addendum to original discharge summary date: ____ Late entry note date: __ DATE: 03/11/19 ATTN: Darlyn Sykes Please exercise your independent, professional judgment in responding to the clarification form. Clinical indicators are provided on the bottom of this form for your review In your clinical opinion based on clinical findings below, can you please further clarify clinical significance of Pneumonia documented on radiology report if: Please check appropriate box(s): [ ] Pneumonia is Clinically Significant to patient's condition [ ] Pneumonia is not Clinically Significant to patient's condition [ x ] Other diagnosis Atelectasis [ ] Unable to determine In addition, please specify: Present on Admission (POA): [ x ] Yes [ ] No [ ] Unable to determine For continuity of documentation, please document condition throughout progress notes and discharge summary. Thank You. CLINICAL INDICATORS - SIGNS / SYMPTOMS / LABS Acute abdomen series p1 03/06/19 Impression : Right basilar density which may represent right pleural fluid with adjacent atelectasis or Pneumonia. Family med H&P p1 03/05 - Respiratory rate :22 Family med H&P p1 03/05 - WBC 12.5 RISK FACTORS Family med H&P p1 03/05 - 83 year-old Family med H&P 03/05 -Dementia TREATMENTS: JUL 13 IV Zosyn Acute abdomen series p1 03/06/19 Recommend follow-up to resolution (This form is maintained as a part of the permanent medical record) 2014 [employer]. All Rights Reserved Ambreen [email or web address] [not provided] MTDD
[2019-03-12] MEDS ORDERED: Ibuprofen 600 MG TAB PO PRN (16:03)
== END 2019-03-09 18:54 | disposition home or self-care (01) | DRG 418 ==
LOC: ERS 11:06 → T4-B 14:27 → ERS 16:22
PROVIDERS: ADMIT Family Medicine; ATTEND Family Medicine
PROC: 0FT44ZZ Resection of Gallbladder, Percutaneous Endoscopic Approach (ICD-10-PCS; principal; 2019-03-07)
PROC: 30233L1 Transfusion of Nonautologous Fresh Plasma into Peripheral Vein, Percutaneous Approach (ICD-10-PCS; 2019-03-07)
PROC: 30233N1 Transfusion of Nonautologous Red Blood Cells into Peripheral Vein, Percutaneous Approach (ICD-10-PCS; 2019-03-07)
PROC: 30233K1 Transfusion of Nonautologous Frozen Plasma into Peripheral Vein, Percutaneous Approach (ICD-10-PCS; 2019-03-07)
DX: K80.42 Calculus of bile duct with acute cholecystitis without obstruction (principal); J98.11 Atelectasis; E03.9 Hypothyroidism, unspecified; G30.9 Alzheimer's disease, unspecified; F02.80 Dementia in other diseases classified elsewhere, unspecified severity, without behavioral disturbance, psychotic disturbance, mood disturbance, and anxiety; G40.909 Epilepsy, unspecified, not intractable, without status epilepticus; K74.60 Unspecified cirrhosis of liver; I25.10 Atherosclerotic heart disease of native coronary artery without angina pectoris; D53.9 Nutritional anemia, unspecified; I35.1 Nonrheumatic aortic (valve) insufficiency; R32 Unspecified urinary incontinence; Z79.899 Other long term (current) drug therapy; Z79.82 Long term (current) use of aspirin; Z79.890 Hormone replacement therapy; Z85.46 Personal history of malignant neoplasm of prostate; Z90.79 Acquired absence of other genital organ(s); I25.2 Old myocardial infarction
CPT/HCPCS: 36415; 36430; 51701; 74022; 76705; 78226; 80053; 81001; 83690; 85025; 85610; 86850; 86900; 86901; 87070; 87086; 87205; 88304; 93005; 93010; 93306; A9537; J0131; J0360; J0670; J1100; J1610; J1650; J1885; J2001; J2270; J2405; J2543; J2704; J3010; J3480; J3490; P9016; P9059; Q0162

== ENCOUNTER 2019-09-22 14:48 | Outpatient (CLI) | payer MEDICARE ==
--- NOTE | 2019-09-22 15:48 | RAD ---
RIGHT HIP 2 VIEWS: HISTORY: Fall. Right hip pain. FINDINGS/IMPRESSION: There are lucencies in the medial and superior aspects of the right acetabulum suspicious for fractur es. Further evaluation with CT scan should be performed. Findings were discussed over the telephone with Dr. Pj Melgar at 3:32 p.m. CODE MINDI POS: MZA
== END 2019-09-22 14:49 | disposition home or self-care (01) ==
LOC: BICRAD 14:48
PROVIDERS: ATTEND Family Medicine
DX: M25.551 Pain in right hip (principal); R93.7 Abnormal findings on diagnostic imaging of other parts of musculoskeletal system

== ENCOUNTER 2019-10-01 10:18 | Observation (INO) | payer MEDICARE ==
[2019-10-01 12:07] LABS: #Eosinphils 0.3 thou/uL (0.0-0.7); #Lymphocytes 1.4 thou/uL (1.20-3.40); #Monocytes 0.8 thou/uL (0.11-0.59); #Neutrophils 5.3 thou/uL (1.40-6.50); %Basophils 0.2 % (0.0-1.0); %Eosinophils 3.6 % (0.0-10.0); %Lymphocytes 18.3 % (21.0-51.0); %Monocytes 10.4 % (0.0-10.0); %Neutrophils 67.5 % (42.0-75.0); Hemoglobin 10.5 g/dL (14.0-18.0); Mean Corpuscular HGB CONC 30.7 g/dL (32.0-36.0); Mean Corpuscular Hemoglobin 24.6 pg (27.0-31.0); Mean Corpuscular Volume 80.3 fL (78.0-98.0); Platelet Count 224 thou/uL (130-400); RBC Distribution Width 18.6 % (11.5-14.5); Red Blood Cell (RBC) Count 4.27 mill/uL (4.70-6.10); White Blood Cell (WBC) Count 7.9 thou/uL (4.8-10.8)
[2019-10-01 12:35] LABS: ALT (SGPT) 13 U/L (8-55); AST (SGOT) 20 U/L (5-34); Albumin 3.6 g/dL (3.4-4.8); Alkaline Phosphatase 344 U/L (40-110); Anion Gap 14 mmol/L (10-20); BUN (Urea Nitrogen) 30 mg/dL (8.4-25.7); Bilirubin, Total 0.5 mg/dL (0.2-1.2); Calc. Creatinine Clearance 0 mL/min (70-130); Calcium 9.2 mg/dL (7.8-10.44); Carbon Dioxide 25 mmol/L (23-31); Chloride 102 mmol/L (98-107); Estimated GFR-MDRD 52; Glucose 111 mg/dL (83-110); Potassium 4.5 mmol/L (3.5-5.1); Protein, Total 7.6 g/dL (5.8-8.1); Sodium 136 mmol/L (136-145)
--- NOTE | 2019-10-01 17:00 | HP ---
REQUESTING PHYSICIAN: Dr. Lockett. ATTENDING SURGEON: Dr. Minor. CONSULTATION: Orthopedics, Dr. Vazquez. HISTORY OF PRESENT ILLNESS: The patient is an 84-year-old man, who approximately 2 weeks ago, had a ground level fall when he slipped getting out of bed and landed on his right hip. The patient was able to get himself up with minimal assistance from his spouse. The patient continued to have pain and would follow up with their primary care provider and the patient was noted to have lucencies in the medial and superior aspects of the right acetabulum. The patient's primary care provider gave them pain medication and a walker and allowed them to go home. The patient's pain continued, and in followup, the patient underwent a CT of his lower extremities that demonstrated acetabular fracture, inferior and superior pubic rami fractures. At which time, he was sent to the emergency department to be evaluated for possible surgical intervention. The patient's radiographs were reviewed by Dr. Vazquez, who recommended inpatient rehab with nonweightbearing on the right side. Unfortunately, the patient's [employer] insurance would not cover rehab stays. The patient was admitted to our facility, [place] [facility]. ALLERGIES: NONE. CURRENT MEDICATIONS: 1. Benazepril. 2. Folic acid. 3. Sertraline. 4. Keppra. 5. Levothyroxine. 6. Atorvastatin. PAST MEDICAL HISTORY: Seizure disorder, hypothyroidism, hypertension, BPH, Alzheimer's/dementia. PAST SURGICAL HISTORY: Appendectomy, prostatectomy, tonsillectomy. SOCIAL HISTORY: The patient lives at home with his spouse. Denies drug, tobacco, or alcohol use. The patient smoked cigarettes greater than 20 years ago. REVIEW OF SYSTEMS: A 10-point review of systems is negative as otherwise stated. Of note, the patient's baseline is A and O x1 and his spouse is the primary historian. PHYSICAL EXAMINATION: VITAL SIGNS: Blood pressure 133/68, heart rate 69, respirations 17, oxygen saturation 98% on room air, and temperature is 98.5. GENERAL: The patient is resting comfortably in bed. He is awake, conversant appropriate. He is A and O x1. His Cyndy Coma Scale is 14, -1 for confusion, albeit contributed to his Alzheimer's. The patient does follow basic simple commands and the confirms this is his baseline. HEENT. Head is normocephalic. Eyes, extraocular movements are intact. PERRLA bilaterally. Ears are atraumatic without discharge. Nose is atraumatic without discharge. Oropharynx is clear. NECK: Nontender. Trachea is midline. CHEST: Had scattered rhonchi noted on deep inspiration, cleared with cough. HEART: Regular rate and rhythm. ABDOMEN: Soft, flat, and nontender with active bowel sounds. PELVIS: Tender to palpation along the right side, consistent with his fracture. EXTREMITIES: Neurovascularly intact x4. BACK: By report is atraumatic and nontender. LABORATORY FINDINGS: White blood cell count 7.9, hemoglobin 10.5, hematocrit 34.3, platelets 224. Sodium 136, potassium 4.5, chloride 102, CO2 of 25, BUN 30, creatinine 1.32, glucose 111, total bilirubin 0.5, AST 20, ALT 13, alkaline phosphatase 344. RADIOGRAPHIC REPORTS: CT of the pelvis from yesterday shows a comminuted iliac bone fracture with fracture involving the supraacetabular region with separation of fracture fragments. Obliquely oriented fracture of the right iliac bone extends into the anterior inferior sacroiliac joint. Comminuted supraacetabular fracture involving the anterior and posterior toscano of the acetabulum. Acetabular fracture extending medially into the most lateral aspect of the right superior pubic ramus with comminuted fracture involving this region. Nondisplaced fracture involving right inferior pubic rami. ASSESSMENT: 1. Status post ground level fall with delayed presentation, approximately 2 weeks. 2. Multiple nonoperative right-sided pelvic fractures. 3. History of hypertension, dementia, hypothyroidism. PLAN: Will be to admit the patient to the surgical floor and await placement decision. We will begin physical and occupational therapy. Do pain control, pulmonary toilet, gastritis and mechanical VTE prophylaxis. The patient will be able to begin chemical VTE prophylaxis tomorrow. The case was discussed with Dr. Vazquez, notifying that the patient will be staying with us. He will evaluate the patient tomorrow. The evaluation, examination, laboratory, and radiographic findings will be discussed with Dr. Minor after this dictation. Job ID: [id number]
[2019-10-01] MEDS ORDERED: Dextrose 50% Abboject 50 ML SYRINGE SLOW IVP PRN (17:28)
[2019-10-01] MEDS ORDERED: Dextrose 5% in Water 1,000 ML IV PRN (17:28)
[2019-10-01] MEDS ORDERED: Ondansetron PF 4 MG/2 ML Vial IVP PRN (17:28)
[2019-10-01] MEDS ORDERED: Ondansetron ODT 4 MG TAB PO PRN (17:28)
[2019-10-01 18:18] VITALS: BMI 27.3
[2019-10-01] MEDS: Sodium Chloride 0.9% 1,000 ML IV SCH (18:28)
[2019-10-01] MEDS: Acetaminophen 500 MG TAB PO SCH (18:32)
[2019-10-01] MEDS: Famotidine 20 MG TAB PO SCH (20:42)
[2019-10-01] MEDS: levETIRAcetam 500 MG TAB PO SCH (20:43)
[2019-10-01] MEDS: Donepezil HCl 5 MG TAB PO SCH (20:44)
[2019-10-02] MEDS: Acetaminophen 500 MG TAB PO SCH ×5 (00:10→23:05)
[2019-10-02] MEDS: Levothyroxine Sodium 50 MCG TAB PO SCH (06:03)
[2019-10-02] MEDS: Sodium Chloride 0.9% 1,000 ML IV SCH (06:15)
[2019-10-02 06:35] LABS: #Eosinphils 0.3 thou/uL (0.0-0.7); #Lymphocytes 1.8 thou/uL (1.20-3.40); #Monocytes 0.7 thou/uL (0.11-0.59); #Neutrophils 3.6 thou/uL (1.40-6.50); %Basophils 0.4 % (0.0-1.0); %Eosinophils 5.1 % (0.0-10.0); %Lymphocytes 27.6 % (21.0-51.0); %Monocytes 11.4 % (0.0-10.0); %Neutrophils 55.6 % (42.0-75.0); Hemoglobin 10.3 g/dL (14.0-18.0); Mean Corpuscular HGB CONC 30.9 g/dL (32.0-36.0); Mean Corpuscular Hemoglobin 25.2 pg (27.0-31.0); Mean Corpuscular Volume 81.6 fL (78.0-98.0); Mean Platelet Volume 8.6 fL (7.4-10.4); Platelet Count 221 thou/uL (130-400); RBC Distribution Width 18.3 % (11.5-14.5); Red Blood Cell (RBC) Count 4.08 mill/uL (4.70-6.10); White Blood Cell (WBC) Count 6.5 thou/uL (4.8-10.8)
[2019-10-02 06:56] LABS: Anion Gap 12 mmol/L (10-20); BUN (Urea Nitrogen) 27 mg/dL (8.4-25.7); Calc. Creatinine Clearance 56 mL/min (70-130); Calcium 8.6 mg/dL (7.8-10.44); Carbon Dioxide 26 mmol/L (23-31); Chloride 105 mmol/L (98-107); Estimated GFR-MDRD 61; Glucose 95 mg/dL (83-110); Magnesium 2.3 mg/dL (1.6-2.6); Phosphorus 3.2 mg/dL (2.3-4.7); Potassium 4.5 mmol/L (3.5-5.1); Sodium 138 mmol/L (136-145)
--- NOTE | 2019-10-02 08:25 | PRG ---
DATE OF SERVICE: 10/02/2019 Please see trauma PA admit H and P for full details. SUBJECTIVE: Mr. Carney had a fall some time ago, was unable to qualify for inpatient rehab. He is being admitted for failure to thrive, additional therapy, and transition to long-term. OBJECTIVE: GENERAL: He is alert, oriented, in no acute distress today. CHEST: Bilateral chest is clear. HEART: Regular rate. ABDOMEN: Soft. ASSESSMENT: Right hip fracture. PLAN: Transition to long-term. Job ID: [id number]
[2019-10-02] MEDS: Docusate 100 MG CAP PO SCH (08:47)
[2019-10-02] MEDS: Triamterene/Hydrochlorothiazide 37.5 mg/25 mg Tablet PO SCH (08:47)
[2019-10-02] MEDS: Folic Acid 1 MG TAB PO SCH (08:47)
[2019-10-02] MEDS: levETIRAcetam 500 MG TAB PO SCH ×2 (08:47→19:24)
[2019-10-02] MEDS: Atorvastatin Calcium 40 MG TAB PO SCH (08:47)
[2019-10-02] MEDS: Enoxaparin Sodium 40 MG/0.4 ML SYRINGE SC SCH (08:47)
[2019-10-02] MEDS: Famotidine 20 MG TAB PO SCH ×2 (08:47→19:24)
[2019-10-02] MEDS ORDERED: Prevnar 13-Val Conj/PF 0.5 ML SYRINGE IM ONE (09:00)
--- NOTE | 2019-10-02 09:06 | CON ---
DATE OF CONSULTATION: 10/02/2019 CHIEF COMPLAINT: Right hip pain. HISTORY OF PRESENT ILLNESS: Mr. Carney is an 84-year-old male who fell approximately 10 days ago at home. He got up at night and lost his balance. He normally walks well without a walker or cane. His is at the bedside. They came in last night because he was having increasing pain and difficulty with mobilizing. He is admitted to the hospital now for placement. Orthopedics was consulted for an acetabulum fracture identified on x-ray and CT scan. PAST MEDICAL HISTORY: Seizure disorder, Alzheimer dementia, BPH, hypertension, and hypothyroidism. PAST SURGICAL HISTORY: Appendectomy, prostatectomy, tonsillectomy. SOCIAL HISTORY: The patient lives at home. He denies tobacco, alcohol, or drug use. His is at the bedside. REVIEW OF SYSTEMS: Positive for right hip pain with movement. Otherwise, negative 10-point review of systems. IMAGING: Right hip x-ray demonstrates a minimally displaced but comminuted anterior column acetabular fracture. CT scan confirms that the patient has a comminuted acetabular fracture extending through the dome of the acetabulum with some displacement. PHYSICAL EXAMINATION: VITAL SIGNS: Temperature is 97.7, pulse is 67, respiratory rate is 18, oxygen saturation 96%, blood pressure is 141/65. GENERAL: He is alert, oriented, in no apparent distress. HEENT: Normocephalic and atraumatic. RESPIRATORY: Breathing comfortably. ABDOMEN: Soft, nontender, and nondistended. MUSCULOSKELETAL: The patient's right lower extremity has pain with hip movement. Otherwise, no pain with ankle or foot movement. He is able to flex and extend the toes. Palpable dorsalis pedis pulse distally. Foot is warm and well perfused. Upper extremities are atraumatic. He has an intravenous line in the left elbow. IMPRESSION: Subacute right acetabulum fracture in an elderly male. PLAN: At this point, I think the patient will best be treated with nonoperative management. He should be toe-touch weightbearing on the right hip. He will need to use a walker and have help. He will likely need to be placed in rehab or [facility] for care. I would plan for him to be toe-touch weightbearing for at least 6 weeks. He can be discharged at any time he is accepted. Mobilize with physical therapy. Pain control. DVT prophylaxis. Job ID: [id number]
[2019-10-02] MEDS: Cyclobenzaprine 10 MG TAB PO PRN (12:41)
[2019-10-02] MEDS: hydrALAZINE 20 MG/ML VIAL SLOW IVP PRN (12:42)
[2019-10-02] MEDS: Donepezil HCl 5 MG TAB PO SCH (19:24)
[2019-10-02] MEDS: diphenhydrAMINE 25 MG CAP PO PRN (20:17)
[2019-10-02] MEDS: Ketorolac Tromethamine 30 MG/ML VIAL IVP SCH (23:21)
--- NOTE | 2019-10-02 23:58 | PRG ---
DATE OF SERVICE: 10/02/2019 SUBJECTIVE: The patient remains on the surgical floor. He was admitted yesterday in attempts to get him placed after presenting to the Emergency Department two weeks status post ground level fall when he sustained a nonoperative right-sided pelvic fractures. The patient was evaluated by Orthopedics, who recommended toe-touch weightbearing for at least six weeks. Today, he will begin working with physical and occupational therapy. He is tolerating diet. He reports his pain is controlled. OBJECTIVE: VITAL SIGNS: Temperature is 97.7, heart rate is 67, blood pressure is 141/65, respirations 18, and oxygen saturation is 96% on room air. GENERAL: The patient is resting comfortably in bed. He is awake, conversant, and at his baseline, which is A and O x1. He does follow simple commands. LUNGS: Clear to auscultation bilaterally. HEART: Regular rate and rhythm. ABDOMEN: Soft, flat, and nontender with active bowel sounds. EXTREMITIES: Neurovascularly intact x4. LABORATORY FINDINGS: White blood cell count 6.5, hemoglobin 10.3, hematocrit 33.3, and platelet 221. Sodium 138, potassium 4.5, chloride 105, CO2 of 26, BUN 27, creatinine 1.15, glucose 95, magnesium 2.3, and phosphorus 3.2. There are no radiographs reviewed this morning. ASSESSMENT: 1. Status post ground level fall with delayed presentation of approximately two weeks. 2. Multiple nonoperative right-sided pelvic fractures. 3. Acute kidney injury, resolved. 4. History of hypertension, dementia, and hypothyroidism. PLAN: Plan will be to continue supportive care. Encourage physical and occupational therapy. Begin working on placement. The patient was resumed on his home medications and has started chemical VTE prophylaxis. Job ID: [id number]
[2019-10-03] MEDS: Cyclobenzaprine 10 MG TAB PO PRN ×3 (00:18→22:06)
[2019-10-03] MEDS: Levothyroxine Sodium 50 MCG TAB PO SCH (05:28)
[2019-10-03] MEDS: Acetaminophen 500 MG TAB PO SCH ×4 (05:28→23:33)
[2019-10-03] MEDS: Ketorolac Tromethamine 30 MG/ML VIAL IVP SCH ×2 (05:28→12:20)
[2019-10-03] MEDS: hydrALAZINE 20 MG/ML VIAL SLOW IVP PRN ×3 (08:04→23:34)
[2019-10-03] MEDS: Atorvastatin Calcium 40 MG TAB PO SCH (09:34)
[2019-10-03] MEDS: Famotidine 20 MG TAB PO SCH ×2 (09:34→20:31)
[2019-10-03] MEDS: Folic Acid 1 MG TAB PO SCH (09:34)
[2019-10-03] MEDS: Triamterene/Hydrochlorothiazide 37.5 mg/25 mg Tablet PO SCH (09:34)
[2019-10-03] MEDS: levETIRAcetam 500 MG TAB PO SCH ×2 (09:34→20:31)
[2019-10-03] MEDS: Docusate 100 MG CAP PO SCH (09:34)
[2019-10-03] MEDS: Enoxaparin Sodium 40 MG/0.4 ML SYRINGE SC SCH (09:35)
[2019-10-03] MEDS ORDERED: traMADol HCl 50 MG TAB PO PRN (16:49)
--- NOTE | 2019-10-03 17:03 | PRG ---
DATE OF SERVICE: 10/03/2019 SUBJECTIVE: The patient remains on the surgical floor. He was admitted after having a delayed presentation of a ground level fall approximately 2 weeks ago. Unfortunately, the patient is essentially homebound due to his Alzheimer/dementia, this hip injury and the fact that he is high risk for COVID. The patient's has been taking care of him, but his pain and mobility became such that she brought him to the emergency department where he was evaluated and noted to have right-sided pelvic fractures that were all evaluated by Orthopedics and deemed nonoperative. Since being here in the hospital, he has begun working with physical and occupational therapy. He is tolerating a diet. His pain is controlled. This morning I had a lengthy conversation with his spouse and his daughter regarding placement. They would like to explore possible short stay in a alf facility, but would also prefer to take Mr. Carney home with home health and home PT. I let them know that this was reasonable and we will discuss options with Case Management as to what was available. PHYSICAL EXAMINATION: VITAL SIGNS: Temperature is 97.6, heart rate 65, blood pressure 160/72, respirations 14, oxygen saturation 93% on room air. GENERAL: The patient is resting comfortably in bed. He is awake, conversant, appropriate. He is at his baseline of A and O x1 with the family members at bedside, agree he is at his baseline. RESPIRATORY: His respirations are nonlabored. ABDOMEN: Nondistended. EXTREMITIES: The patient is moving all 4 extremities freely though he does move his right lower extremity slower due to his right-sided pelvic fractures. There are no labs or radiographs to review this morning. ASSESSMENT: 1. Status post ground level fall with delayed presentation of approximately 2 weeks. 2. Multiple nonoperative right-sided pelvic fractures. 3. Acute kidney injury, resolved. 4. History of hypertension, dementia and hypothyroidism. PLAN: Continue supportive care. Encourage physical and occupational therapy, work on placement. Job ID: [id number]
[2019-10-03] MEDS: traMADol HCl 50 MG TAB PO SCH ×2 (17:37→23:34)
[2019-10-03] MEDS: Donepezil HCl 5 MG TAB PO SCH (20:33)
[2019-10-03] MEDS: diphenhydrAMINE 25 MG CAP PO PRN (22:06)
[2019-10-04] MEDS: traMADol HCl 50 MG TAB PO SCH ×2 (05:06→11:42)
[2019-10-04] MEDS: Acetaminophen 500 MG TAB PO SCH ×2 (05:06→11:42)
[2019-10-04] MEDS: Levothyroxine Sodium 50 MCG TAB PO SCH (05:07)
[2019-10-04] MEDS: Triamterene/Hydrochlorothiazide 37.5 mg/25 mg Tablet PO SCH (08:32)
[2019-10-04] MEDS: Docusate 100 MG CAP PO SCH (08:32)
[2019-10-04] MEDS: Famotidine 20 MG TAB PO SCH (08:32)
[2019-10-04] MEDS: Folic Acid 1 MG TAB PO SCH (08:32)
[2019-10-04] MEDS: Atorvastatin Calcium 40 MG TAB PO SCH (08:33)
[2019-10-04] MEDS: levETIRAcetam 500 MG TAB PO SCH (08:33)
[2019-10-04] MEDS: hydrALAZINE 20 MG/ML VIAL SLOW IVP PRN (08:36)
[2019-10-04] MEDS: Enoxaparin Sodium 40 MG/0.4 ML SYRINGE SC SCH (08:36)
[2019-10-04 12:27] VITALS: BP 144/58; TEMP 98.4
--- NOTE | 2019-10-09 15:03 | EKG ---
Test Reason : Blood Pressure : / mmHG Vent. Rate : 072 BPM Atrial Rate : 072 BPM P-R Int : 158 ms QRS Dur : 086 ms QT Int : 384 ms P-R-T Axes : 043 035 054 degrees QTc Int : 420 ms Normal sinus rhythm Normal ECG Confirmed by JACEK CHRISTIANSEN, KRISHAN ([id number]), manager editorial BLADIMIR DYER ([id number]) on 10/09/2019 3:02:49 PM Referred By: Confirmed By:KRISHAN READ MD
== END 2019-10-04 15:08 | disposition home health service (06) ==
LOC: ERS 10:18 → SURG A 14:02 → INTOOBSV 14:02
PROVIDERS: ADMIT Surgery; ATTEND Surgery
DX: S32.411A Displaced fracture of anterior wall of right acetabulum, initial encounter for closed fracture (principal); S32.421A Displaced fracture of posterior wall of right acetabulum, initial encounter for closed fracture; S32.481A Displaced dome fracture of right acetabulum, initial encounter for closed fracture; S32.301A Unspecified fracture of right ilium, initial encounter for closed fracture; S32.591A Other specified fracture of right pubis, initial encounter for closed fracture; N17.9 Acute kidney failure, unspecified; I10 Essential (primary) hypertension; G30.9 Alzheimer's disease, unspecified; F02.80 Dementia in other diseases classified elsewhere, unspecified severity, without behavioral disturbance, psychotic disturbance, mood disturbance, and anxiety; E03.9 Hypothyroidism, unspecified; N40.0 Benign prostatic hyperplasia without lower urinary tract symptoms; G40.909 Epilepsy, unspecified, not intractable, without status epilepticus; Z87.891 Personal history of nicotine dependence; Z79.899 Other long term (current) drug therapy; W01.0XXA Fall on same level from slipping, tripping and stumbling without subsequent striking against object, initial encounter; Y92.009 Unspecified place in unspecified non-institutional (private) residence as the place of occurrence of the external cause
CPT/HCPCS: 80048; 80053; 83735; 84100; 84484; 85025 ×2; 93005; 96372 ×3; 96374; 96375; 96376 ×2; 97110; 97116; 97139 ×7; 97530 ×3; 97535; 99285; G0378 ×4; 36415; J0360; J1650; J1885; Q0163